=== PATIENT | female | born 1965 | race Two or more races ===

== ENCOUNTER 2016-12-04 21:36 | Emergency (ER) | payer SELFPAY ==
[2016-12-04 21:49] VITALS: BP 172/89
--- NOTE | 2016-12-04 22:22 | EDM.PDOC ---
ED HPI GENERAL MEDICAL PROBLEM - General Chief Complaint: Upper Extremity Injury/Pain Stated Complaint: Left middle finger Time Seen by Provider: 12/04/16 22:00 Source of Information: Reports: Patient, RN Notes Reviewed History Limitations: Reports: No Limitations - History of Present Illness INITIAL COMMENTS - FREE TEXT/NARRATIVE: 51 year old female presents to the ED with 2-3 day history of left middle finger pain and swelling. The finger tip is very tender. She wears acrylic nails and says she bumped the nail a couple times this past week that caused her some discomfort. No fever or chills. Left Hand Pain Score (Numeric/FACES): 10 - Related Data Allergies Allergy/AdvReac Type Severity Reaction Status Date / Time No Known Allergies Allergy Verified 12/04/16 21:48 Home Meds: Home Meds Doxycycline [Vibramycin] 100 mg PO BID #28 tablet 12/04/16 [Rx] Past Medical History - Past Health History Medical/Surgical History: Denies Medical/Surgical History Other Respiratory History: ongoing cough Other Endocrine/Metabolic History: pre-diabetic Social & Family History - Tobacco Use Smoking Status *Q: Never Smoker Second Hand Smoke Exposure: No - Caffeine Use Caffeine Use: Reports: None - Alcohol Use Days Per Week of Alcohol Use: 0 Number of Drinks Per Day: 1 Total Drinks Per Week: 0 - Recreational Drug Use Recreational Drug Use: No Review of Systems - Review of Systems Review Of Systems: See Below Constitutional: Denies: Chills, Fever Musculoskeletal: Reports: Joint Swelling, Other (finger pain) Skin: Reports: Erythema Trauma Exam - Physical Exam Exam: See Below Exam Limited By: No Limitations General Appearance: Reports: Alert, WD/WN, No Apparent Distress Extremities: Other (erythema and tenderness to distal left middle finger. She has acrylic nails on so I am unable to adequately assess the nail bed. CMS is intact. ) Neurologic: Reports: No Motor/Sensory Deficits, Alert Skin: Reports: Other (increased warmth and redness to distall left middle finger ) Course - Vital Signs Last Recorded V/S: Last Vital Signs Temp 97.9 F 12/04/16 21:46 Pulse 94 12/04/16 21:46 Resp 18 12/04/16 21:46 BP 172/89 H 12/04/16 21:46 Pulse Ox 100 12/04/16 21:46 - Orders/Labs/Meds Orders: Active Orders 24 hr Category Date Time Status Fingers Third Digit Lt F2 [CR] Stat Exams 12/04/16 22:09 Ordered Meds: Medications Discontinued Medications Generic Name Dose Route Start Last Admin Trade Name Shashi PRN Reason Stop Dose Admin Bupivacaine HCl 10 ml 12/04/16 22:55 Sensorcaine-Mpf 0.5% INJECT 12/04/16 22:56 ONETIME ONE Doxycycline Hyclate 200 mg 12/04/16 23:04 Vibramycin PO 12/04/16 23:05 ONETIME ONE Ketorolac Tromethamine 60 mg 12/04/16 23:04 Toradol IM 12/04/16 23:05 ONETIME ONE - Re-Assessments/Exams Free Text/Narrative Re-Assessment/Exam: X-rays are negative for bony abnormality. I suspect that the patient has a paronychia. The patient has acrylic nails so I am unable to assess the nail bed adequately. I recommended a digital nerve block and then removing the acrylic nail with possible need for I&D. The patient refused the procedure and removal of her nail. She adamantly refuses that we remove the acrylic nail. She wants to go home and remove the nail herself. I explained that we would numb her finger so that the procedure would not be painful. I explained that she likely has a puss pocket under the nail that needs to be opened up. She stated "I don' t want that." Risks versus benefits were thoroughly discussed. I have agreed to start her on antibiotics. I explained that this will likely not get better with antibiotics alone and that she likely needs the wound drained. Of course, I can not definitively diagnose a paronychia without visualizing the nail bed. She was instructed to remove the nail and follow-up in the clinic tomorrow for a recheck. She is agreeable to this. Will given an injection of Toradol for pain and discharge her home. Departure - Departure Time of Disposition: 23:05 Disposition: Home, Self-Care 01 Condition: good Clinical Impression: Paronychia Qualifiers: Laterality: left Qualified Code(s): L03.012 - Cellulitis of left finger - Discharge Information Prescriptions: Doxycycline [Vibramycin] 100 mg PO BID #28 tablet Referrals: Nayeli Smallwood NP [Primary Care Provider] - Forms: ED Department Discharge Additional Instructions: Antibiotic: Doxycycline 100mg twice a day for two weeks. Take full course of antibiotics I recommend that you remove the acrylic nail and follow-up in the clinic tomorrow to have the infection opened open Call [phone] to schedule a same day appointment tomorrow Ibuprofen 800mg every 8 hours as needed for pain alternating with Tylenol 1000mg every 8 hours - My Orders Last 24 Hours: My Active Orders 12/04/16 22:09 Fingers Third Digit Lt F2 [CR] Stat - Assessment/Plan Last 24 Hours: My Active Orders 12/04/16 22:09 Fingers Third Digit Lt F2 [CR] Stat
[2016-12-04] MEDS ORDERED: Bupivacaine 0.5% 10 ML SDV INJECT ONE (22:55)
[2016-12-04] MEDS ORDERED: Ketorolac 60 MG/2 ML SDV IM ONE (23:04)
[2016-12-04] MEDS ORDERED: Doxycycline 100 MG Cap PO ONE (23:04)
--- NOTE | 2016-12-05 07:09 | CR ---
Left third finger: Three views centered to the left third finger were obtained. Joint space narrowing is noted within the DIP and PIP joints. No fracture, dislocation or other bony abnormality is seen. Impression: 1. Degenerative joint space narrowing. 2. Nothing acute is identified on left third finger study. Diagnostic code #2
== END 2016-12-04 23:20 | disposition home or self-care (01) ==
LOC: JD.ED 21:36
DX: L03.012 Cellulitis of left finger (principal)
CPT/HCPCS: 73140; 96372; 99283; A9270; J1885

== ENCOUNTER 2018-08-04 11:06 | Emergency (ER) | payer SELFPAY ==
[2018-08-04 11:15] VITALS: BP 138/68
--- NOTE | 2018-08-04 11:44 | EDM.PDOC ---
ED HPI GENERAL MEDICAL PROBLEM - General Chief Complaint: Back Pain or Injury Stated Complaint: BACK PAIN Time Seen by Provider: 08/04/18 11:24 Source of Information: Reports: Patient, RN Notes Reviewed History Limitations: Reports: No Limitations - History of Present Illness INITIAL COMMENTS - FREE TEXT/NARRATIVE: The patient states that she developed right flank pain this past Thursday evening , 08/01/2018. The pain is made worse with movement and, she states, it seems to be spreading to the left side now, as well. She denies any injury or strain to her back. She states that she had similar pain in June 2017, was seen here, and prescribed pain medication. I have reviewed all of the patient's prior ED evaluations and found that she was seen in this ED on 08/26/2014, and found to have right ureterolithiasis. The patient also states that she has a history of diabetes, treated with metformin, but that she checks her blood sugar very infrequently, most recently about 3 months ago. She checked it again this morning, finding it to be elevated at 244. She denies urinary symptoms, just dysuria, urinary urgency, or frequency, although does admit to increased thirst. The patient also reports tingling and numbness to her entire left upper extremity, for the past several mornings when she wakes, and although it has improved since this morning when she woke, it is still present. The patient's PCP was Sandie Smallwood. She has not found a new PCP yet. Middle Back Pain Score (Numeric/FACES): 10 - Related Data Allergies Allergy/AdvReac Type Severity Reaction Status Date / Time No Known Allergies Allergy Verified 08/04/18 11:15 Home Meds: Home Meds Orphenadrine [Norflex] 1 tab PO Q12H PRN #20 tab.er 08/04/18 [Rx] metFORMIN [Glucophage XR] 500 mg PO DAILY 08/04/18 [History] Past Medical History Cardiovascular History: Reports: High Cholesterol Genitourinary History: Reports: Renal Calculus (08/26/2014) Endocrine/Metabolic History: Reports: Diabetes, Type II, Obesity/BMI 30+ - Past Surgical History GI Surgical History: Reports: Hernia, Abdominal Female Surgical History: Reports: Tubal Ligation Social & Family History - Tobacco Use Smoking Status *Q: Never Smoker Second Hand Smoke Exposure: No - Caffeine Use Caffeine Use: Reports: Coffee - Alcohol Use Alcohol Use History: Yes Alcohol Use Frequency: Rarely - Recreational Drug Use Recreational Drug Use: No - Living Situation & Occupation Living situation: Reports: , with Spouse Occupation: Employed (Manages an employment company) ED ROS GENERAL - Review of Systems Review Of Systems: ROS reveals no pertinent complaints other than HPI. ED EXAM,LOWER BACK PAIN/INJURY - Physical Exam Exam: See Below Exam Limited By: No Limitations General Appearance: Alert, WD/WN, No Apparent Distress Eye Exam: Bilateral Eye: EOMI, Normal Inspection Ears: Normal External Exam, Hearing Grossly Normal Nose: Normal Inspection Throat/Mouth: Normal Inspection, Normal Lips, Normal Voice, No Airway Compromise Head: Atraumatic, Normocephalic Neck: Normal Inspection, Full Range of Motion Respiratory/Chest: No Respiratory Distress, Lungs Clear, Normal Breath Sounds, No Accessory Muscle Use Cardiovascular: Normal Peripheral Pulses, Regular Rate, Rhythm, No Gallop, No JVD, No Murmur, No Rub GI/Abdominal: Normal Bowel Sounds, Soft, Non-Tender, No Organomegaly, No Distention, No Abnormal Bruit, No Mass, Other (Obese) (Female) Exam: Deferred Rectal (Female) Exam: Deferred Back Exam: Normal Inspection, Full Range of Motion, CVA Tenderness (L) (even to palpation without percussion), CVA Tenderness (R) (even to palpation without percussion), Other (The patient is able to flex her spine to about 70, and extend her spine to about 20. She is able to tilt her spine bilaterally to about 30. She is able to twist her spine bilaterally to about 30. Unilateral knee bend is normal bilaterally. Straight leg raise induces flank pain at about 45, bilaterally.) Extremities: Normal Inspection, Normal Range of Motion, Normal Capillary Refill Neurological: Alert, Oriented x 3, Other (The patient reports a decreased sensation and tingling in her entire left upper extremity. Neurovascular status of the left upper extremity is intact.) Psychiatric: Normal Affect Skin Exam: Warm, Dry, Intact, Normal Color, No Rash Course - Vital Signs Last Recorded V/S: Last Vital Signs Temp 36.6 C 08/04/18 11:13 Pulse 74 08/04/18 11:13 Resp 18 08/04/18 11:13 BP 138/68 08/04/18 11:13 Pulse Ox 97 08/04/18 11:13 - Orders/Labs/Meds Orders: Active Orders 24 hr Category Date Time Status Accu Check [Blood Glucose Check, Bedside] [RC] ONETIME Care 08/04/18 11:28 Active Orphenadrine [Norflex] Med 08/04/18 13:05 Stat 100 mg PO ONETIME STA Labs: Laboratory Tests 08/04/18 Range/Units 11:55 Urine Color Yellow (Yellow) Urine Appearance Clear (Clear) Urine pH 5.5 (5.0-8.0) Ur Specific [place] > or = 1.030 (1.005-1.030) Urine Protein 1+ H (Negative) Urine Glucose (UA) Negative (Negative) Urine Ketones Negative (Negative) Urine Occult Blood Negative (Negative) Urine Nitrite Negative (Negative) Urine Bilirubin Negative (Negative) Urine Urobilinogen 0.2 (0.2-1.0) Ur Leukocyte Esterase Negative (Negative) Urine RBC 0-5 (0-5) /hpf Urine WBC 0-5 (0-5) /hpf Ur Epithelial Cells 0-5 (0-5) /hpf Urine Bacteria Few (FEW) /hpf Urine Mucus Few (FEW) /hpf - Re-Assessments/Exams Free Text/Narrative Re-Assessment/Exam: 08/04/18 11:42 By examination, the patient is suffering from muscle spasm to her right flank, although she has similar symptoms on the left. I want to make sure that she does not have an unusual presentation of a UTI or kidney stone, therefore I have ordered a urinalysis, and because of her report of elevated blood glucose, I have also ordered an Accu-Chek. The patient's left upper extremity tingling and numbness is most likely due to compression neuropraxia, although it is possible that the patient has cervical radiculopathy. She may benefit from a MRI of her neck, but this would need to be done as an outpatient. This was explained to the patient, who seems disappointed. I suspect that she was hoping that all evaluations could be performed here in the ED, today. 08/04/18 13:05 The patient's urinalysis is completely normal, with no suggestion of blood or a UTI. Her Accu-Chek is 209. I suspect that the patient's back pain is musculoskeletal in etiology. I have ordered Norflex, and will prescribe the same. I will refer her to our clinic for follow-up. 08/04/18 13:10 Test results discussed with the patient. I will send a prescription for Norflex to the [facility] in [email or web address], then refer her to Dr. Avila for follow-up. Departure - Departure Time of Disposition: 13:11 Disposition: Home, Self-Care 01 Condition: Good Clinical Impression: Musculoskeletal back pain, Neuropraxia of left upper extremity, Hyperglycemia due to type 2 diabetes mellitus - Discharge Information *PRESCRIPTION DRUG MONITORING PROGRAM REVIEWED*: Not Applicable *COPY OF PRESCRIPTION DRUG MONITORING REPORT IN PATIENT ALPESH: Not Applicable Referrals: Irene Avila MD [Physician] - Forms: ED Department Discharge Additional Instructions: You were seen in the emergency room for right flank pain, high blood sugar, and tingling and numbness of your entire left arm. Workup in the ER included an Accu-Chek and a urinalysis. Your blood sugar is elevated at 209. Your urinalysis was completely normal, with no suggestion of an infection or a kidney stone. Based on your history, physical examination, and ER tests, your back pain is most likely due to muscle strain. You have been started on the muscle relaxant Norflex. A prescription for Norflex has been sent to the [facility], located in the [email or web address] grocery store. Take one tablet of Norflex every 12 hours, starting tomorrow morning, , 08/05/2018. In addition to Norflex, you may also take [id number] ibuprofen, 2-3 tablets (400-600 mg) every 8 hours, with food, as needed for discomfort. The cause of your left arm tingling and numbness is not entirely clear, but may be due to neuropraxia related to cervical disc disease. We recommend that you follow-up with Dr. Irene Avila, for further evaluation. Dr. Avila can also address your diabetes issues. If any other problems, please do not hesitate to return to the ER. - My Orders Last 24 Hours: My Active Orders 08/04/18 11:28 Accu Check [Blood Glucose Check, Bedside] [RC] ONETIME 08/04/18 13:05 Orphenadrine [Norflex] 100 mg PO ONETIME STA - Assessment/Plan Last 24 Hours: My Active Orders 08/04/18 11:28 Accu Check [Blood Glucose Check, Bedside] [] ONETIME 08/04/18 13:05 Orphenadrine [Norflex] 100 mg PO ONETIME STA
[2018-08-04] MEDS ORDERED: Orphenadrine 100 MG Tab.ER PO STA (13:05)
== END 2018-08-04 13:51 | disposition home or self-care (01) ==
LOC: JD.ED 11:06
DX: M54.9 Dorsalgia, unspecified (principal); S44.92XA Injury of unspecified nerve at shoulder and upper arm level, left arm, initial encounter; E11.65 Type 2 diabetes mellitus with hyperglycemia; E78.00 Pure hypercholesterolemia, unspecified; Z87.442 Personal history of urinary calculi; E66.9 Obesity, unspecified; Z79.84 Long term (current) use of oral hypoglycemic drugs
CPT/HCPCS: 81001; 82962; 99283; A9270; 99282

== ENCOUNTER 2019-12-09 21:25 | Emergency (ER) | payer BC ==
--- NOTE | 2019-12-09 21:59 | EDM.PDOC ---
ED HPI GENERAL MEDICAL PROBLEM - General Chief Complaint: Lower Extremity Injury/Pain Stated Complaint: LEFT UPPER THIGH PAIN WOKE HER UP 330 AM Time Seen by Provider: 12/09/19 21:45 Source of Information: Reports: Patient History Limitations: Reports: No Limitations - History of Present Illness INITIAL COMMENTS - FREE TEXT/NARRATIVE: The patient presents with left hip pain. This started a couple days ago and it woke her up at 3:30 am. She has tried advil and tylenol and nothing his helpin. She did not injure her hip in any way. She did not fall and she has not been working to hard. She has never had this happen before. She has no swelling in her leg. She has no back pain. She has no fever, chills, cough, chest pain, shortness of breath, abdominal pain, nausea or vomiting. Onset: Sudden Duration: Day(s): Location: Reports: Lower Extremity, Left (hip) Quality: Reports: Sharp Severity: Severe Improves with: Reports: Immobilization Worsens with: Reports: Movement Context: Denies: Trauma Associated Symptoms: Reports: No Other Symptoms Treatments [employer]: Reports: Acetaminophen, Cold Therapy, Heat Therapy, NSAIDS Left Hip Pain Score (Numeric/FACES): 10 - Related Data Allergies Allergy/AdvReac Type Severity Reaction Status Date / Time No Known Allergies Allergy Verified 12/09/19 21:39 Home Meds: Home Meds metFORMIN [Glucophage XR] 500 mg PO DAILY 08/04/18 [History] Past Medical History - Past Health History Medical/Surgical History: Denies Medical/Surgical History Cardiovascular History: Reports: High Cholesterol Other Respiratory History: ongoing cough Genitourinary History: Reports: Renal Calculus Endocrine/Metabolic History: Reports: Diabetes, Type II, Obesity/BMI 30+ Other Endocrine/Metabolic History: pre-diabetic - Past Surgical History GI Surgical History: Reports: Hernia, Abdominal Female Surgical History: Reports: Tubal Ligation Social & Family History - Tobacco Use Smoking Status *Q: Never Smoker - Caffeine Use Caffeine Use: Reports: Coffee - Recreational Drug Use Recreational Drug Use: No - Living Situation & Occupation Living situation: Reports: , with Spouse Occupation: Employed (Manages an employment company) Review of Systems - Review of Systems Review Of Systems: See Below Constitutional: Reports: No Symptoms Eyes: Reports: No Symptoms Ears: Reports: No Symptoms Nose: Reports: No Symptoms Mouth/Throat: Reports: No Symptoms Respiratory: Reports: No Symptoms Cardiovascular: Reports: No Symptoms GI/Abdominal: Reports: No Symptoms Genitourinary: Reports: No Symptoms Musculoskeletal: Reports: Other (Left hip pain) ED EXAM, GENERAL - Physical Exam Exam: See Below Exam Limited By: No Limitations General Appearance: Alert, No Apparent Distress Ears: Normal External Exam Nose: Normal Inspection Head: Atraumatic, Normocephalic Neck: Normal Inspection Respiratory/Chest: No Respiratory Distress Extremities: Other (Pain upon palpation to the left hip. Good sensation and pulses distally. There is no edema in her leg.) Course - Vital Signs Last Recorded V/S: Last Vital Signs Temp 97.1 F 12/09/19 21:35 Pulse 80 12/09/19 21:35 Resp 18 12/09/19 21:35 BP 160/65 H 12/09/19 21:35 Pulse Ox 97 12/09/19 21:35 - Orders/Labs/Meds Orders: Active Orders 24 hr Category Date Time Status Hip Min 2V or 3V w Pelvis Lt [CR] Stat Exams 12/09/19 21:48 Ordered HYDROmorphone [Dilaudid] Med 12/09/19 22:25 Once 1 mg IM ONETIME ONE Ketorolac [Toradol] Med 12/09/19 22:25 Once 60 mg IM ONETIME ONE - Re-Assessments/Exams Free Text/Narrative Re-Assessment/Exam: 12/09/19 21:59 I ordered an x-ray of her hip. 12/09/19 22:25 Her x-ray looks good. I gave her a shot of toradol and dilaudid. I will give her flexeril and a few hydrocodone. Departure - Departure Time of Disposition: 22:30 Disposition: Home, Self-Care 01 Condition: Good Clinical Impression: Left hip pain - Discharge Information *PRESCRIPTION DRUG MONITORING PROGRAM REVIEWED*: Not Applicable *COPY OF PRESCRIPTION DRUG MONITORING REPORT IN PATIENT ALPESH: Not Applicable Referrals: Digna Razo NP [Primary Care Provider] - Malcolm Edmondson MD [Physician] - 1 Week Forms: ED Department Discharge Additional Instructions: Take motrin or aleve for pain. You may also take the flexeril for pain. If they do not help try the hydrocodone. Ice your hip for 15 minutes 3 times per day for 2 days. Use crutches as needed. Follow up with Dr Edmondson within a week if you are not better. Please return if you are worse. Sepsis Event Note - Evaluation Sepsis Screening Result: No Definite Risk - Focused Exam Vital Signs: Vital Signs Temp Pulse Resp BP Pulse Ox 12/09/19 21:35 97.1 F 80 18 160/65 H 97 Date Exam was Performed: 12/09/19 Time Exam was Performed: 22:25 - My Orders Last 24 Hours: My Active Orders 12/09/19 21:48 Hip Min 2V or 3V w Pelvis Lt [CR] Stat 12/09/19 22:25 HYDROmorphone [Dilaudid] 1 mg IM ONETIME ONE Ketorolac [Toradol] 60 mg IM ONETIME ONE - Assessment/Plan Last 24 Hours: My Active Orders 12/09/19 21:48 Hip Min 2V or 3V w Pelvis Lt [CR] Stat 12/09/19 22:25 HYDROmorphone [Dilaudid] 1 mg IM ONETIME ONE Ketorolac [Toradol] 60 mg IM ONETIME ONE
[2019-12-09] MEDS ORDERED: HYDROmorphone 1 MG/ML Syringe IM ONE (22:25)
[2019-12-09] MEDS ORDERED: Ketorolac 60 MG/2 ML SDV IM ONE (22:25)
[2019-12-10 01:00] VITALS: BP 140/77; PULSE 75
--- NOTE | 2019-12-10 06:19 | CR ---
Pelvis and left hip: AP view of the pelvis was obtained as well as AP and frog-leg lateral views left hip. Slightly prominent acetabulum are seen superiorly on both sides which can be seen normally but puts the patient at risk for premature degeneration. Minimal joint space narrowing is noted superiorly within both hips. No acute fracture or other bony abnormality is seen. Impression: 1. Slight degenerative change and other findings as noted above. Diagnostic code #2 This report was dictated in MDT
== END 2019-12-09 22:40 | disposition home or self-care (01) ==
LOC: JD.ED 21:25
DX: M25.552 Pain in left hip (principal); E11.9 Type 2 diabetes mellitus without complications; E66.9 Obesity, unspecified; Z68.34 Body mass index [BMI] 34.0-34.9, adult; Z79.84 Long term (current) use of oral hypoglycemic drugs
CPT/HCPCS: 73502; 96372; 99283; J1170; J1885

== ENCOUNTER 2020-01-29 02:26 | Emergency (ER) | payer BC ==
[2020-01-29 02:43] VITALS: PULSE 88
[2020-01-29] MEDS ORDERED: HYDROmorphone 0.5 MG/0.5 ML Syringe IVPUSH ONE (03:18)
[2020-01-29] MEDS ORDERED: Ondansetron 4 MG/2 ML SDV IVPUSH ONE (03:18)
--- NOTE | 2020-01-29 03:23 | EDM.PDOC ---
ED HPI GENERAL MEDICAL PROBLEM - General Chief Complaint: Flank Pain Stated Complaint: HEADACHE,LOWER ABDOMINAL PAIN Time Seen by Provider: 01/29/20 03:05 Source of Information: Reports: Patient, Family () History Limitations: Reports: No Limitations - History of Present Illness INITIAL COMMENTS - FREE TEXT/NARRATIVE: Mrs. Baker is a very pleasant 54-year-old woman with a past medical history significant for ureterolithiasis, who now presents to the ED stating that she woke around 02:00 this morning with crampy/sharp left upper quadrant pain (the patient expressly denies having left flank pain, as indicated in the triage note). The pain has been coming and going, lasting a few seconds, then recurring about every 20 seconds. She has had both nausea and vomiting. She has had chills, but no fever. No associated constipation, diarrhea, or urinary symptoms. The patient did not take any [id number] or home remedies prior to coming to the ED. The patient states that she has had similar symptoms on 2 prior occasions, the first about 4 months ago, and again about 3 months ago. She did not seek medical evaluation, stating that in both instances, the symptoms resolved after about 3 days. Here in the ED, the patient's initial BP is found to be elevated at 186/81, otherwise, she is hemodynamically stable, afebrile, saturating 95% on room air. Other than this morning's symptoms, the patient denies recent fever, sore throat, ear pain, nasal or sinus congestion, cough, dyspnea, chest pain, palpitations, constipation, diarrhea, urinary symptoms, recent weight gain or weight loss, recent bloody bowel movements or black bowel movements, recent joint aches, headaches, or rashes. The patient's PCP is Digna Razo NP. Left Flank Pain Score (Numeric/FACES): 10 - Related Data Allergies Allergy/AdvReac Type Severity Reaction Status Date / Time No Known Allergies Allergy Verified 01/29/20 02:52 Home Meds: Home Meds . [No Known Home Meds] 01/29/20 [History] Past Medical History Cardiovascular History: Reports: High Cholesterol (untreated) Genitourinary History: Reports: Renal Calculus Endocrine/Metabolic History: Reports: Diabetes, Type II (untreated), Obesity/BMI 30+ - Past Surgical History GI Surgical History: Reports: Colonoscopy (x 1, May 2019), Hernia, Abdominal Female Surgical History: Reports: Tubal Ligation Social & Family History - Family History Family Medical History: Noncontributory - Tobacco Use Smoking Status *Q: Current Some Day Smoker Years of Tobacco use: 20 Packs/Tins Daily: 0.1 - Caffeine Use Caffeine Use: Reports: None - Alcohol Use Alcohol Use History: Yes Alcohol Use Frequency: Rarely - Recreational Drug Use Recreational Drug Use: No - Living Situation & Occupation Living situation: Reports: , with Spouse Occupation: Employed (Manages an employment company) ED ROS GENERAL - Review of Systems Review Of Systems: Comprehensive ROS is negative, except as noted in HPI. ED EXAM, GI/ABD - Physical Exam Exam: See Below Exam Limited By: No Limitations General Appearance: Alert, WD/WN, Mild Distress (moaning, complaining of pain) Ears: Normal External Exam, Hearing Grossly Normal Nose: Normal Inspection Throat/Mouth: Normal Inspection, Normal Lips, Normal Voice, No Airway Compromise Head: Atraumatic, Normocephalic Neck: Normal Inspection, Full Range of Motion Respiratory/Chest: No Respiratory Distress, Lungs Clear, Normal Breath Sounds, No Accessory Muscle Use Cardiovascular: Normal Peripheral Pulses, Regular Rate, Rhythm, No Edema, No Gallop, No JVD, No Murmur, No Rub GI/Abdominal Exam: Normal Bowel Sounds, Soft, Non-Tender (including the LUQ), No Organomegaly, No Distention, No Abnormal Bruit, No Mass (Female) Exam: Deferred Rectal (Female) Exam: Deferred Back Exam: Normal Inspection, Full Range of Motion. No: CVA Tenderness (L), CVA Tenderness (R) Extremities: Normal Inspection, Normal Range of Motion, No Pedal Edema, Normal Capillary Refill Neurological: Alert, Oriented, Normal Cognition, No Motor/Sensory Deficits Psychiatric: Anxious (kept eyes closed entire time) Skin Exam: Warm, Dry, Intact, Normal Color, No Rash Course - Vital Signs Last Recorded V/S: Last Vital Signs Temp 36.1 C 01/29/20 02:39 Pulse 88 01/29/20 05:10 Resp 16 01/29/20 05:10 BP 140/63 01/29/20 05:10 Pulse Ox 99 01/29/20 05:10 - Orders/Labs/Meds Labs: Laboratory Tests 01/29/20 01/29/20 01/29/20 Range/Units 03:00 03:00 03:55 WBC 11.77 H (3.98-10.04) K/mm3 RBC 4.79 (3.98-5.22) M/mm3 Hgb 13.6 (11.2-15.7) gm/dl Hct 41.5 (34.1-44.9) % MCV 86.6 (79.4-94.8) fl MCH 28.4 (25.6-32.2) pg MCHC 32.8 (32.2-35.5) g/dl RDW Std Deviation 40.6 (36.4-46.3) fL Plt Count 238 (182-369) K/mm3 MPV 12.3 (9.4-12.3) fl Neutrophils % (Manual) 52 (40-60) % Band Neutrophils % 0 (0-10) % Lymphocytes % (Manual) 41 H (20-40) % Atypical Lymphs % 0 % Monocytes % (Manual) 6 (2-10) % Eosinophils % (Manual) 1 (0.7-5.8) % Basophils % (Manual) 0 L (0.1-1.2) Platelet Estimate Adequate Plt Morphology Comment Normal RBC Morph Comment Normal Sodium 140 (136-145) mEq/L Potassium 4.0 (3.5-5.1) mEq/L Chloride 102 (98-107) mEq/L Carbon Dioxide 25 (21-32) mEq/L Anion Gap 17.0 H (5-15) BUN 14 (7-18) mg/dL Creatinine 0.9 (0.55-1.02) mg/dL Est Cr Clr Drug Dosing 60.99 mL/min Estimated GFR (MDRD) > 60 (>60) mL/min BUN/Creatinine Ratio 15.6 (14-18) Glucose 289 H (74-106) mg/dL Calcium 8.6 (8.5-10.1) mg/dL Total Bilirubin 0.2 (0.2-1.0) mg/dL AST 24 (15-37) U/L ALT 38 (14-59) U/L Alkaline Phosphatase 68 (46-116) U/L Total Protein 7.3 (6.4-8.2) g/dl Albumin 3.5 (3.4-5.0) g/dl Globulin 3.8 gm/dL Albumin/Globulin Ratio 0.9 L (1-2) Urine Color Light yellow (Yellow) Urine Appearance Clear (Clear) Urine pH 6.0 (5.0-8.0) Ur Specific [place] 1.025 (1.005-1.030) Urine Protein 1+ H (Negative) Urine Glucose (UA) 2+ H (Negative) Urine Ketones Trace H (Negative) Urine Occult Blood 2+ H (Negative) Urine Nitrite Negative (Negative) Urine Bilirubin Negative (Negative) Urine Urobilinogen 0.2 (0.2-1.0) Ur Leukocyte Esterase Negative (Negative) Urine RBC 5-10 H (0-5) /hpf Urine WBC 0-5 (0-5) /hpf Ur Squamous Epith Cells 5-10 H (0-5) /hpf Urine Bacteria Not seen (FEW) /hpf Urine Mucus Not seen (FEW) /hpf Meds: Medications Discontinued Medications Generic Name Dose Route Start Last Admin Trade Name Freq PRN Reason Stop Dose Admin Hydromorphone HCl 0.5 mg 01/29/20 03:18 01/29/20 03:24 Dilaudid IVPUSH 01/29/20 03:19 0.5 mg ONETIME ONE Administration Sodium Chloride 1,000 mls @ 150 mls/hr 01/29/20 03:30 01/29/20 03:24 Normal Saline IV 150 mls/hr ASDIRECTED GERALD Administration Ondansetron HCl 4 mg 01/29/20 03:18 01/29/20 03:24 Zofran IVPUSH 01/29/20 03:19 4 mg ONETIME ONE Administration - Re-Assessments/Exams Free Text/Narrative Re-Assessment/Exam: 01/29/20 03:19 As above, the patient developed left upper quadrant abdominal pain (not left flank pain, as suggested in the triage note) around 02:00 this morning, along with nausea, vomiting, and chills. She states that she had similar symptoms a few months ago, which resolved after a few days. While the patient is moaning and telling me that she has considerable pain, I was surprised to find that she has absolutely no tenderness to palpation of her abdomen, whatsoever. Similarly, she has no CVA tenderness on either side. Her abdomen is soft with normoactive bowel sounds. For these reasons, I don't believe that an emergency CT scan of her abdomen and pelvis with oral and IV contrast is indicated. For today's purposes, I have ordered a work-up that includes blood work, a urinalysis, and an upright abdominal x-ray. In the meantime, the patient will be given IV Dilaudid, IV Zofran, and IV fluid. 01/29/20 04:34 Upright abdominal x-ray appears to indicate a pocket of gas in the colon at the splenic flexure, with some stool in the descending colon. Otherwise nonspecific bowel gas pattern. Ehsan in the right upper quadrant, consistent with prior cholecystectomy, incidentally noted. Subtle thoracolumbar scoliosis. Formal read per the Radiologist pending. The patient's CBC is remarkable for a WBC count mildly elevated at 11.77, but with 0% bandemia. The remainder of her CBC is unremarkable. Her CMP is remarkable for an anion gap mildly elevated at 17.0, but with a bicarbonate normal at 25. Her blood glucose is elevated at 289, with the remainder of her CMP being unremarkable. Her urinalysis is remarkable for 2+ occult blood with 5-10 RBCs, leukocyte esterase negative with 0-5 WBCs, nitrate negative with no bacteria seen, and 5- 10 squamous epithelial cells. 01/29/20 04:48 Test results discussed with the patient and her . As above, the upright abdominal x-ray shows a gas pocket in the splenic flexure, the site of her pain. I explained that her pain appears to be due to a stool plug causing a backup of some gas in the splenic flexure. I recommended that she increase her ambulation, and also increase the amount of fiber in her diet, with something like Metamucil, along with plenty of fluids. We also discussed the patient's hyperglycemia. I strongly encouraged her to resume treatment for her diabetes. She will follow-up with her PCP in that regard. With respect to the microscopic hematuria, the patient again reiterated that she did not have flank pain, rather, she had left upper quadrant abdominal pain. Since that she does not have any left CVA tenderness, I do not feel that her symptoms are due to a ureterolith, and I am not recommending a CT scan to evaluate for that. I explained that in order to determine why she has microscop ic hematuria, she may need to follow-up with a Urologist, if it persists. Departure - Departure Time of Disposition: 04:50 Disposition: Home, Self-Care 01 Condition: Good Clinical Impression: Gas pain, Hyperglycemia due to type 2 diabetes mellitus - Discharge Information *PRESCRIPTION DRUG MONITORING PROGRAM REVIEWED*: Not Applicable *COPY OF PRESCRIPTION DRUG MONITORING REPORT IN PATIENT ALPESH: Not Applicable Instructions: Hyperglycemia, [id number] Referrals: Digna Razo NP [Primary Care Provider] - Forms: ED Department Discharge Additional Instructions: You were seen in the emergency room after waking up with upper left abdominal pain. Work-up in the ER included blood work, a urinalysis, and x-rays of your upper right abdomen. Your work-up found a pocket of air in your upper left colon, which is likely the cause of your pain. Going forward, we recommend that you increase the amount of fiber in your diet, with something like Metamucil, along with plenty of fluid. We also recommend that you increase the amount that you ambulate (walk). Your blood work was remarkable for a blood sugar elevated at 289. We strongly recommend that you follow-up with your PCP, Digna Razo NP, to get back on treatment for your diabetes. Your urine found a microscopic amount of blood. We recommend that you have your PCP, Digna Razo NP, follow this. If it persists, you may need to be referred to a Urologist. If any other problems, please do not hesitate to return to the ER. Sepsis Event Note (ED) - Evaluation Sepsis Screening Result: No Definite Risk
[2020-01-29] MEDS ORDERED: Sodium Chloride 0.9% 1,000 ML IV SCH (03:30)
[2020-01-29 05:24] VITALS: BP 140/63
--- NOTE | 2020-01-30 05:27 | CR ---
Abdomen: Upright view of the abdomen was obtained. Comparison: Prior abdominal x-ray of 08/25/14. Surgical clips are noted from prior cholecystectomy. Slight scoliosis is noted within the spine. Mild degenerative change is noted within the lower thoracic spine. No soft tissue abnormality is seen. No free air is seen. Bowel gas pattern appears normal. Impression: 1. Prior cholecystectomy. 2. Nothing acute is seen on upright abdominal x-ray. Diagnostic code #2 This report was dictated in MDT
== END 2020-01-29 05:11 | disposition home or self-care (01) ==
LOC: JD.ED 02:26
DX: E11.65 Type 2 diabetes mellitus with hyperglycemia (principal); R14.3 Flatulence; E11.9 Type 2 diabetes mellitus without complications; E66.9 Obesity, unspecified; F17.210 Nicotine dependence, cigarettes, uncomplicated; Z68.37 Body mass index [BMI] 37.0-37.9, adult
CPT/HCPCS: 36415; 74018; 80053; 81001; 85007; 85027; 96361; 96374; 96375; 99284; J1170; J2405; J7030

== ENCOUNTER 2021-03-21 20:15 | Inpatient (IN) | payer SELFPAY ==
[2021-03-21] MEDS ORDERED: Sodium Chloride 0.9% 1,000 ML IV ONE (21:45)
[2021-03-21] MEDS ORDERED: Insulin Regular, Human 100 Units/ML 3 ML Vial IV STA (21:45)
--- NOTE | 2021-03-21 21:45 | EDM.PDOC ---
ED HPI GENERAL MEDICAL PROBLEM - General Chief Complaint: Fever Stated Complaint: LIGHTHEADED/WEAK/VOMITTING Time Seen by Provider: 03/21/21 21:22 Source of Information: Reports: Patient, Family (Son) History Limitations: Reports: No Limitations - History of Present Illness INITIAL COMMENTS - FREE TEXT/NARRATIVE: Mrs. Baker is a very pleasant 55-year-old woman who now presents the ED stating that she has been feeling lightheaded, nauseated, chilled, with body aches, and a headache since 03/19/2021. She has been feeling dyspneic since 03/20/2021. She has had a slight dry cough. No constipation, diarrhea, or urinary symptoms. She has not checked her temperature. The patient states that she has been taking acetaminophen, but is concerned abo ut continuing to take it. The patient states that she had similar symptoms last week, but that they resolved, only to return on Thursday. When she was symptomatic last week, she was seen at the walk-in clinic, where, she states, a swab for the SARS-CoV-2 virus was negative. Here in the ED tonight, the patient's initial BP is found to be mildly elevated at 157/94, with slight tachypnea of 22 rpm. She is afebrile, saturating 93% on room air. She appears to be somewhat depressed, but is in no acute distress. Prior to last week, the patient denies having a recent fever, chills, sore throat, ear pain, nasal or sinus congestion, cough, dyspnea, chest pain, palpitations, nausea, vomiting, constipation, diarrhea, abdominal pain, urinary symptoms, recent weight gain or weight loss, recent bloody bowel movements or black bowel movements, recent joint aches, headaches, or rashes. The patient's PCP is Digna Razo NP. She has not received a COVID vaccination. - Related Data Allergies Allergy/AdvReac Type Severity Reaction Status Date / Time No Known Allergies Allergy Verified 03/21/21 20:37 Home Meds: Home Meds metFORMIN [Glucophage XR] 500 mg PO BIDMEALS 03/21/21 [History] Past Medical History Cardiovascular History: Reports: High Cholesterol (untreated) Genitourinary History: Reports: Renal Calculus Endocrine/Metabolic History: Reports: Diabetes, Type II, Obesity/BMI 30+ - Past Surgical History GI Surgical History: Reports: Colonoscopy (x 1), Hernia, Abdominal (x 1) Female Surgical History: Reports: Tubal Ligation Social & Family History - Tobacco Use Tobacco Use Status *Q: Current Every Day Tobacco User Years of Tobacco use: 21 Packs/Tins Daily: 0.1 - Caffeine Use Caffeine Use: Reports: None - Alcohol Use Alcohol Use History: Yes Alcohol Use Frequency: Rarely - Recreational Drug Use Recreational Drug Use: No - Living Situation & Occupation Living situation: Reports: , with Spouse Occupation: Employed (Manages an employment company) ED ROS GENERAL - Review of Systems Review Of Systems: Comprehensive ROS is negative, except as noted in HPI. ED EXAM, GENERAL - Physical Exam Exam: See Below Exam Limited By: No Limitations General Appearance: Alert, WD/WN, No Apparent Distress Eye Exam: Bilateral Eye: EOMI, Normal Inspection Ears: Normal External Exam, Hearing Grossly Normal Nose: Normal Inspection Throat/Mouth: Normal Inspection, Normal Lips, Normal Voice, No Airway Compromise Head: Atraumatic, Normocephalic Neck: Normal Inspection, Full Range of Motion Respiratory/Chest: No Respiratory Distress, Lungs Clear, Normal Breath Sounds, No Accessory Muscle Use. No: Decreased Breath Sounds, Crackles, Rhonchi, Wheezing, Stridor, Prolonged Expiration Cardiovascular: Normal Peripheral Pulses, Regular Rate, Rhythm, No Edema, No Gallop, No JVD, No Murmur, No Rub Peripheral Pulses: 3+: Radial (L), Radial (R) GI/Abdominal: Normal Bowel Sounds, Soft, Non-Tender, No Organomegaly, No Distention, No Abnormal Bruit, No Mass Back Exam: Normal Inspection, Full Range of Motion, NT Extremities: Normal Inspection, Normal Range of Motion, No Pedal Edema, Normal Capillary Refill Neurological: Alert, Oriented, Normal Cognition, No Motor/Sensory Deficits Psychiatric: Normal Affect Skin Exam: Warm, Dry, Intact, Normal Color, No Rash Course - Vital Signs Last Recorded V/S: Last Vital Signs Temp 37.7 C 03/21/21 20:35 Pulse 99 03/21/21 20:35 Resp 22 H 03/21/21 20:35 BP 157/94 H 03/21/21 20:35 Pulse Ox 93 L 03/21/21 20:35 - Orders/Labs/Meds Orders: Active Orders 24 hr Category Date Time Status Accu Check [Blood Glucose Check, Bedside] [RC] ONETIME Care 03/22/21 00:13 Active BLOOD CULTURE [MREF] Stat Lab 03/21/21 22:00 Received BLOOD CULTURE [MREF] Stat Lab 03/21/21 22:10 Received CULTURE URINE [MREF] Stat Lab 03/22/21 00:33 Ordered Blood Culture x2 Reflex Set [OM.PC] Stat Oth 03/21/21 21:37 Ordered Labs: Laboratory Tests 03/21/21 03/21/21 03/21/21 Range/Units 20:40 20:45 20:50 WBC 16.77 H (3.98-10.04) K/mm3 RBC 4.73 (3.98-5.22) M/mm3 Hgb 13.4 (11.2-15.7) gm/dl Hct 40.5 (34.1-44.9) % MCV 85.6 (79.4-94.8) fl MCH 28.3 (25.6-32.2) pg MCHC 33.1 (32.2-35.5) g/dl RDW Std Deviation 39.2 (36.4-46.3) fL Plt Count 211 (182-369) K/mm3 MPV 12.6 H (9.4-12.3) fl Neut % (Auto) 82.4 H (34.0-71.1) % Lymph % (Auto) 9.4 L (19.3-51.7) % [place] % (Auto) 7.6 (4.7-12.5) % Eos % (Auto) 0.1 L (0.7-5.8) Baso % (Auto) 0.1 (0.1-1.2) % Neut # (Auto) 13.82 H (1.56-6.13) K/mm3 Lymph # (Auto) 1.57 (1.18-3.74) K/mm3 [place] # (Auto) 1.28 H (0.24-0.36) K/mm3 Eos # (Auto) 0.01 L (0.04-0.36) K/mm3 Baso # (Auto) 0.02 (0.01-0.08) K/mm3 Sodium (136-145) mEq/L Potassium (3.5-5.1) mEq/L Chloride (98-107) mEq/L Carbon Dioxide (21-32) mEq/L Anion Gap (5-15) BUN (7-18) mg/dL Creatinine (0.55-1.02) mg/dL Est Cr Clr Drug Dosing mL/min Estimated GFR (MDRD) (>60) mL/min BUN/Creatinine Ratio (14-18) Glucose (70-99) mg/dL POC Glucose (70-99) mg/dL Calcium (8.5-10.1) mg/dL Total Bilirubin (0.2-1.0) mg/dL AST (15-37) U/L ALT (14-59) U/L Alkaline Phosphatase (46-116) U/L C-Reactive Protein (<1.0) mg/dL Total Protein (6.4-8.2) g/dl Albumin (3.4-5.0) g/dl Globulin gm/dL Albumin/Globulin Ratio (1-2) Urine Color Yellow (Yellow) Urine Appearance Slt cloudy H (Clear) Urine pH 6.0 (5.0-8.0) Ur Specific [place] 1.015 (1.005-1.030) Urine Protein 2+ H (Negative) Urine Glucose (UA) 2+ H (Negative) Urine Ketones 3+ H (Negative) Urine Occult Blood 3+ H (Negative) Urine Nitrite Negative (Negative) Urine Bilirubin Negative (Negative) Urine Urobilinogen 0.2 (0.2-1.0) Ur Leukocyte Esterase Negative (Negative) Urine RBC 10-20 H (0-5) /hpf Urine WBC 10-20 H (0-5) /hpf Ur Squamous Epith Cells 0-5 (0-5) /hpf Urine Bacteria Few (FEW) /hpf Urine Mucus Not seen (FEW) /hpf Ketones (0.0-0.3) mM Influenza Type A RNA Cancelled Influenza Type B RNA Cancelled SARS-CoV-2 RNA (DALE) Negative (NEGATIVE) 03/21/21 03/21/21 03/22/21 Range/Units 20:50 20:50 00:16 WBC (3.98-10.04) K/mm3 RBC (3.98-5.22) M/mm3 Hgb (11.2-15.7) gm/dl Hct (34.1-44.9) % MCV (79.4-94.8) fl MCH (25.6-32.2) pg MCHC (32.2-35.5) g/dl RDW Std Deviation (36.4-46.3) fL Plt Count (182-369) K/mm3 MPV (9.4-12.3) fl Neut % (Auto) (34.0-71.1) % Lymph % (Auto) (19.3-51.7) % [place] % (Auto) (4.7-12.5) % Eos % (Auto) (0.7-5.8) Baso % (Auto) (0.1-1.2) % Neut # (Auto) (1.56-6.13) K/mm3 Lymph # (Auto) (1.18-3.74) K/mm3 [place] # (Auto) (0.24-0.36) K/mm3 Eos # (Auto) (0.04-0.36) K/mm3 Baso # (Auto) (0.01-0.08) K/mm3 Sodium 129 L D (136-145) mEq/L Potassium 4.5 (3.5-5.1) mEq/L Chloride 94 L (98-107) mEq/L Carbon Dioxide 24 (21-32) mEq/L Anion Gap 15.5 H (5-15) BUN 13 (7-18) mg/dL Creatinine 0.9 (0.55-1.02) mg/dL Est Cr Clr Drug Dosing 57.74 mL/min Estimated GFR (MDRD) > 60 (>60) mL/min BUN/Creatinine Ratio 14.4 (14-18) Glucose 398 H (70-99) mg/dL POC Glucose 269 H (70-99) mg/dL Calcium 9.2 (8.5-10.1) mg/dL Total Bilirubin 0.4 (0.2-1.0) mg/dL AST 13 L (15-37) U/L ALT 30 (14-59) U/L Alkaline Phosphatase 92 (46-116) U/L C-Reactive Protein 49.6 H* (<1.0) mg/dL Total Protein 8.1 (6.4-8.2) g/dl Albumin 2.9 L (3.4-5.0) g/dl Globulin 5.2 gm/dL Albumin/Globulin Ratio 0.6 L (1-2) Urine Color (Yellow) Urine Appearance (Clear) Urine pH (5.0-8.0) Ur Specific [place] (1.005-1.030) Urine Protein (Negative) Urine Glucose (UA) (Negative) Urine Ketones (Negative) Urine Occult Blood (Negative) Urine Nitrite (Negative) Urine Bilirubin (Negative) Urine Urobilinogen (0.2-1.0) Ur Leukocyte Esterase (Negative) Urine RBC (0-5) /hpf Urine WBC (0-5) /hpf Ur Squamous Epith Cells (0-5) /hpf Urine Bacteria (FEW) /hpf Urine Mucus (FEW) /hpf Ketones 1.11 (0.0-0.3) mM Influenza Type A RNA Influenza Type B RNA SARS-CoV-2 RNA (DALE) (NEGATIVE) Meds: Medications Discontinued Medications Generic Name Dose Route Start Last Admin Trade Name Freq PRN Reason Stop Dose Admin Sodium Chloride 1,000 mls @ 999 mls/hr 03/21/21 21:45 03/21/21 22:01 Normal Saline IV 03/21/21 22:45 999 mls/hr ONETIME ONE Administration Insulin Human Regular 4 unit 03/21/21 21:45 03/21/21 22:01 Insulin Regular, Human 100 Units/Ml 3 Ml Vial IV 03/21/21 21:46 4 unit ONETIME STA Administration - Re-Assessments/Exams Free Text/Narrative Re-Assessment/Exam: 03/21/21 21:40 The patient's story is concerning for coronavirus, particularly with an oxygen saturation of 93% on room air. Her physical exam is completely unremarkable, including lungs clear to auscultation bilaterally. A CBC, CMP, CRP, swab for the SARS-CoV-2 virus, and urinalysis were ordered at triage. I have added 2 sets of blood cultures and a portable chest x-ray. The patient's CBC is remarkable for leukocytosis of 16.77, with 82.4% neutrophils and 9.4% lymphocytes, with the remainder of her CBC being unremarkable. Her CMP is remarkable for hyponatremia of 129, and anion gap slightly elevated at 15.5 but with a bicarbonate normal at 24, hyperglycemia of 398, and the remainder of her CMP being unremarkable. Her urinalysis is remarkable for slightly cloudy appearance, 3+ occult blood with 10-20 RBCs, leukocyte esterase negative with 10-20 WBCs, nitrate negative with few bacteria, and 0-5 squamous epithelial cells. Based on the above, I will order 1 L of NS and 4 units of regular insulin IVP. 03/21/21 22:31 Portable chest x-ray is read by Dr. Chery as: 1. Slight calcific tendinitis within the left shoulder. 2. Nothing acute is appreciated on frontal chest x-ray. 03/21/21 22:43 The patient's CRP is substantially elevated at 49.6. Her swab for the SARS-CoV-2 virus is negative. 03/21/21 22:45 I have added a serum ketones. 03/21/21 23:54 The patient's serum ketones are mildly elevated at 1.11. 03/22/21 00:21 The patient's Accu-Chek is 269. 03/22/21 00:28 Test results discussed with the patient and her son. The patient's leukocytosis and very high CRP are concerning for an infection, although no infection has been found. She does not have pneumonia, and does not appear to have a UTI. I suspect that her hyperglycemia is a response an infectious cause, not the cause of her leukocytosis and elevated CRP. I recommended placement into observation, and the patient agreed. 03/22/21 02:19 A bed is available on the medical floor. I will write bridge orders, then notify Dr. Neal of the patient's admission in the morning. Departure - Departure Time of Disposition: 02:20 Disposition: Refer to Observation Condition: Good Clinical Impression: Hyperglycemia due to type 2 diabetes mellitus, Leukocytosis, CRP elevated - Discharge Information *PRESCRIPTION DRUG MONITORING PROGRAM REVIEWED*: Not Applicable *COPY OF PRESCRIPTION DRUG MONITORING REPORT IN PATIENT ALPESH: Not Applicable Sepsis Event Note (ED) - Evaluation Sepsis Screening Result: Possible Sepsis Risk - Focused Exam Vital Signs: Vital Signs Temp Pulse Resp BP Pulse Ox 03/21/21 20:35 37.7 C 99 22 H 157/94 H 93 L - My Orders Last 24 Hours: My Active Orders 03/21/21 21:37 Blood Culture x2 Reflex Set [OM.PC] Stat 03/21/21 22:00 BLOOD CULTURE [MREF] Stat 03/21/21 22:10 BLOOD CULTURE [MREF] Stat 03/22/21 00:13 Accu Check [Blood Glucose Check, Bedside] [RC] ONETIME 03/22/21 00:33 CULTURE URINE [MREF] Stat - Assessment/Plan Last 24 Hours: My Active Orders 03/21/21 21:37 Blood Culture x2 Reflex Set [OM.PC] Stat 03/21/21 22:00 BLOOD CULTURE [MREF] Stat 03/21/21 22:10 BLOOD CULTURE [MREF] Stat 03/22/21 00:13 Accu Check [Blood Glucose Check, Bedside] [RC] ONETIME 03/22/21 00:33 CULTURE URINE [MREF] Stat
--- NOTE | 2021-03-21 22:18 | CR ---
Chest: Frontal view of the chest was obtained. Comparison: Prior chest x-ray of 03/19/15. Heart size and mediastinum are within normal limits. Lungs are clear with no acute parenchymal change. Bony structures show nothing acute. Small calcification is noted off the proximal left humerus compatible with calcific tendinitis. Impression: 1. Slight calcific tendinitis within the left shoulder. 2. Nothing acute is appreciated on frontal chest x-ray. Diagnostic code #2
[2021-03-22] MEDS ORDERED: Ondansetron 4 MG/2 ML SDV IVPUSH ONE (02:29)
[2021-03-22] MEDS ORDERED: Sodium Chloride 0.9% 1,000 ML IV SCH (02:30)
[2021-03-22] MEDS ORDERED: Ondansetron 4 MG/2 ML SDV IVPUSH PRN (02:38)
[2021-03-22] MEDS: Sodium Chloride 0.9% 1,000 ML IV SCH ×3 (03:34→09:54)
--- NOTE | 2021-03-22 08:32 | PCM.HP.2 ---
H&P History of Present Illness - General Date of Service: 03/22/21 Admit Problem/Dx: Admission Diagnosis/Problem Admission Diagnosis/Problem Hyperglycemia - History of Present Illness Initial Comments - Free Text/Narative: 55-year-old female presents to the emergency department feeling ill for the last several days. She states she is been chilled, fever, body aches especially back pain, lightheaded, and generalized malaise and fatigue. She denies shortness of breath or cough. She denies any dysuria, abdominal pain, diarrhea, nausea, or vomiting. states that she is very active and works hard getting only 5 to 6 hours of sleep per night. Now she states she feels fatigued and unable to do so. She was seen last week at the walk-in clinic and tested for COVID-19. It was negative. In the emergency department here she was again tested for COVID-19 and was negative. In the emergency department she was initially mildly tachypneic at respiratory rate of 22 and sats are 93% on room air. Blood pressure is 157/94 with a heart rate of 99. Patient fulfills SIRS criteria. White count was 16.8, C-reactive protein was very high at 49.6. She is diabetic, not taking her Glucophage for several months, and initial blood sugars were 398. Ketones were 1.11. Corrected sodium was 136. Patient was given 1 L of normal saline, 4 units of regular insulin, and transferred to the floor. Chest x-ray was completed and showed nothing acute of the chest. UA was negative for leukocyte Estrace but did show 10-20 WBCs and RBCs. - Related Data Allergies/Adverse Reactions: Allergies Allergy/AdvReac Type Severity Reaction Status Date / Time No Known Allergies Allergy Verified 03/21/21 20:37 Home Medications: Home Meds metFORMIN [Glucophage XR] 500 mg PO BIDMEALS 03/21/21 [History] Past Medical History - Past Health History Medical/Surgical History: Denies Medical/Surgical History Cardiovascular History: Reports: High Cholesterol, Other (See Below) Other Cardiovascular History: Patient stated she had high cholesterol in the past but her provider took her off the medicine Other Respiratory History: ongoing cough Genitourinary History: Reports: Renal Calculus [employer]ACH[employer]IDE CLERICAL History: Reports: Endocrine/Metabolic History: Reports: Diabetes, Type II, Obesity/BMI 30+ Other Endocrine/Metabolic History: pre-diabetic - Past Surgical History GI Surgical History: Reports: Colonoscopy, Hernia, Abdominal Female Surgical History: Reports: Tubal Ligation Social & Family History - Family History Family Medical History: No Pertinent Family History - Tobacco Use Tobacco Use Status *Q: Former Tobacco User Years of Tobacco use: 21 Packs/Tins Daily: 0.1 Used Tobacco, but Quit: Yes Month/Year Tobacco Last Used: unknown Tobacco Use Comment: Patient did not give much detail but stated she used to smoke for not very long and a pack would last her about two months - Caffeine Use Caffeine Use: Reports: None - Recreational Drug Use Recreational Drug Use: No - Living Situation & Occupation Living situation: Reports: , with Spouse Occupation: Employed (Manages an employment company) H&P Review of Systems - Review of Systems: Review Of Systems: Comprehensive ROS is negative, except as noted in HPI. Exam - Exam Exam: See Below - Vital Signs Vital Signs: Last Vital Signs Temp 98.2 F 03/22/21 07:53 Pulse 85 03/22/21 07:53 Resp 16 03/22/21 07:53 BP 149/61 H 03/22/21 07:53 Pulse Ox 96 03/22/21 07:53 Weight: 199 lb - Exam Quality Assessment: No: Supplemental Oxygen General: Alert, Oriented, Other (No distress) HEENT: Conjunctiva Clear, Hearing Intact, Mucosa Moist & [place] Neck: Supple, Trachea Midline, 2 Lungs: Clear to Auscultation, Normal Respiratory Effort Cardiovascular: Regular Rate, Regular Rhythm, Normal S1, Normal S2. No: Systolic Murmur GI/Abdominal Exam: Normal Bowel Sounds, Soft, Non-Tender, No Organomegaly, No Distention, No Abnormal Bruit, No Mass Extremities: Normal Inspection, Normal Range of Motion, Non-Tender, No Pedal Edema, Normal Capillary Refill Skin: Warm, Dry, Intact Neuro Extensive - Mental Status: Alert, Oriented x3, Normal Mood/Affect, Normal Cognition, Memory Intact Psychiatric: Alert, Normal Affect, Normal Mood - Patient Data Lab Results Last 24 hrs: Laboratory Results - last 24 hr 03/21/21 03/21/21 03/21/21 Range/Units 20:40 20:45 20:50 WBC 16.77 H (3.98-10.04) K/mm3 RBC 4.73 (3.98-5.22) M/mm3 Hgb 13.4 (11.2-15.7) gm/dl Hct 40.5 (34.1-44.9) % MCV 85.6 (79.4-94.8) fl MCH 28.3 (25.6-32.2) pg MCHC 33.1 (32.2-35.5) g/dl RDW Std Deviation 39.2 (36.4-46.3) fL Plt Count 211 (182-369) K/mm3 MPV 12.6 H (9.4-12.3) fl Neut % (Auto) 82.4 H (34.0-71.1) % Lymph % (Auto) 9.4 L (19.3-51.7) % Edwards % (Auto) 7.6 (4.7-12.5) % Eos % (Auto) 0.1 L (0.7-5.8) Baso % (Auto) 0.1 (0.1-1.2) % Neut # (Auto) 13.82 H (1.56-6.13) K/mm3 Lymph # (Auto) 1.57 (1.18-3.74) K/mm3 Edwards # (Auto) 1.28 H (0.24-0.36) K/mm3 Eos # (Auto) 0.01 L (0.04-0.36) K/mm3 Baso # (Auto) 0.02 (0.01-0.08) K/mm3 Sodium (136-145) mEq/L Potassium (3.5-5.1) mEq/L Chloride (98-107) mEq/L Carbon Dioxide (21-32) mEq/L Anion Gap (5-15) BUN (7-18) mg/dL Creatinine (0.55-1.02) mg/dL Est Cr Clr Drug Dosing mL/min Estimated GFR (MDRD) (>60) mL/min BUN/Creatinine Ratio (14-18) Glucose (70-99) mg/dL POC Glucose (70-99) mg/dL Calcium (8.5-10.1) mg/dL Total Bilirubin (0.2-1.0) mg/dL AST (15-37) U/L ALT (14-59) U/L Alkaline Phosphatase (46-116) U/L C-Reactive Protein (<1.0) mg/dL Total Protein (6.4-8.2) g/dl Albumin (3.4-5.0) g/dl Globulin gm/dL Albumin/Globulin Ratio (1-2) Urine Color Yellow (Yellow) Urine Appearance Slt cloudy H (Clear) Urine pH 6.0 (5.0-8.0) Ur Specific [place] 1.015 (1.005-1.030) Urine Protein 2+ H (Negative) Urine Glucose (UA) 2+ H (Negative) Urine Ketones 3+ H (Negative) Urine Occult Blood 3+ H (Negative) Urine Nitrite Negative (Negative) Urine Bilirubin Negative (Negative) Urine Urobilinogen 0.2 (0.2-1.0) Ur Leukocyte Esterase Negative (Negative) Urine RBC 10-20 H (0-5) /hpf Urine WBC 10-20 H (0-5) /hpf Ur Squamous Epith Cells 0-5 (0-5) /hpf Urine Bacteria Few (FEW) /hpf Urine Mucus Not seen (FEW) /hpf Ketones (0.0-0.3) mM Influenza Type A RNA Cancelled Influenza Type B RNA Cancelled SARS-CoV-2 RNA (DALE) Negative (NEGATIVE) 03/21/21 03/21/21 03/22/21 Range/Units 20:50 20:50 00:16 WBC (3.98-10.04) K/mm3 RBC (3.98-5.22) M/mm3 Hgb (11.2-15.7) gm/dl Hct (34.1-44.9) % MCV (79.4-94.8) fl MCH (25.6-32.2) pg MCHC (32.2-35.5) g/dl RDW Std Deviation (36.4-46.3) fL Plt Count (182-369) K/mm3 MPV (9.4-12.3) fl Neut % (Auto) (34.0-71.1) % Lymph % (Auto) (19.3-51.7) % Edwards % (Auto) (4.7-12.5) % Eos % (Auto) (0.7-5.8) Baso % (Auto) (0.1-1.2) % Neut # (Auto) (1.56-6.13) K/mm3 Lymph # (Auto) (1.18-3.74) K/mm3 Edwards # (Auto) (0.24-0.36) K/mm3 Eos # (Auto) (0.04-0.36) K/mm3 Baso # (Auto) (0.01-0.08) K/mm3 Sodium 129 L D (136-145) mEq/L Potassium 4.5 (3.5-5.1) mEq/L Chloride 94 L (98-107) mEq/L Carbon Dioxide 24 (21-32) mEq/L Anion Gap 15.5 H (5-15) BUN 13 (7-18) mg/dL Creatinine 0.9 (0.55-1.02) mg/dL Est Cr Clr Drug Dosing 57.74 mL/min Estimated GFR (MDRD) > 60 (>60) mL/min BUN/Creatinine Ratio 14.4 (14-18) Glucose 398 H (70-99) mg/dL POC Glucose 269 H (70-99) mg/dL Calcium 9.2 (8.5-10.1) mg/dL Total Bilirubin 0.4 (0.2-1.0) mg/dL AST 13 L (15-37) U/L ALT 30 (14-59) U/L Alkaline Phosphatase 92 (46-116) U/L C-Reactive Protein 49.6 H* (<1.0) mg/dL Total Protein 8.1 (6.4-8.2) g/dl Albumin 2.9 L (3.4-5.0) g/dl Globulin 5.2 gm/dL Albumin/Globulin Ratio 0.6 L (1-2) Urine Color (Yellow) Urine Appearance (Clear) Urine pH (5.0-8.0) Ur Specific [place] (1.005-1.030) Urine Protein (Negative) Urine Glucose (UA) (Negative) Urine Ketones (Negative) Urine Occult Blood (Negative) Urine Nitrite (Negative) Urine Bilirubin (Negative) Urine Urobilinogen (0.2-1.0) Ur Leukocyte Esterase (Negative) Urine RBC (0-5) /hpf Urine WBC (0-5) /hpf Ur Squamous Epith Cells (0-5) /hpf Urine Bacteria (FEW) /hpf Urine Mucus (FEW) /hpf Ketones 1.11 (0.0-0.3) mM Influenza Type A RNA Influenza Type B RNA SARS-CoV-2 RNA (DALE) (NEGATIVE) 03/22/21 Range/Units 04:50 WBC (3.98-10.04) K/mm3 RBC (3.98-5.22) M/mm3 Hgb (11.2-15.7) gm/dl Hct (34.1-44.9) % MCV (79.4-94.8) fl MCH (25.6-32.2) pg MCHC (32.2-35.5) g/dl RDW Std Deviation (36.4-46.3) fL Plt Count (182-369) K/mm3 MPV (9.4-12.3) fl Neut % (Auto) (34.0-71.1) % Lymph % (Auto) (19.3-51.7) % Edwards % (Auto) (4.7-12.5) % Eos % (Auto) (0.7-5.8) Baso % (Auto) (0.1-1.2) % Neut # (Auto) (1.56-6.13) K/mm3 Lymph # (Auto) (1.18-3.74) K/mm3 Edwards # (Auto) (0.24-0.36) K/mm3 Eos # (Auto) (0.04-0.36) K/mm3 Baso # (Auto) (0.01-0.08) K/mm3 Sodium 133 L (136-145) mEq/L Potassium 3.8 (3.5-5.1) mEq/L Chloride 99 (98-107) mEq/L Carbon Dioxide 21 (21-32) mEq/L Anion Gap 16.8 H (5-15) BUN 11 (7-18) mg/dL Creatinine 0.6 (0.55-1.02) mg/dL Est Cr Clr Drug Dosing 90.41 mL/min Estimated GFR (MDRD) > 60 (>60) mL/min BUN/Creatinine Ratio 18.3 H (14-18) Glucose 291 H (70-99) mg/dL POC Glucose (70-99) mg/dL Calcium 8.6 (8.5-10.1) mg/dL Total Bilirubin (0.2-1.0) mg/dL AST (15-37) U/L ALT (14-59) U/L Alkaline Phosphatase (46-116) U/L C-Reactive Protein (<1.0) mg/dL Total Protein (6.4-8.2) g/dl Albumin (3.4-5.0) g/dl Globulin gm/dL Albumin/Globulin Ratio (1-2) Urine Color (Yellow) Urine Appearance (Clear) Urine pH (5.0-8.0) Ur Specific [place] (1.005-1.030) Urine Protein (Negative) Urine Glucose (UA) (Negative) Urine Ketones (Negative) Urine Occult Blood (Negative) Urine Nitrite (Negative) Urine Bilirubin (Negative) Urine Urobilinogen (0.2-1.0) Ur Leukocyte Esterase (Negative) Urine RBC (0-5) /hpf Urine WBC (0-5) /hpf Ur Squamous Epith Cells (0-5) /hpf Urine Bacteria (FEW) /hpf Urine Mucus (FEW) /hpf Ketones (0.0-0.3) mM Influenza Type A RNA Influenza Type B RNA SARS-CoV-2 RNA (DALE) (NEGATIVE) Result Diagrams: 03/21/21 20:50 03/22/21 04:50 Bimal Results Last 24 hrs: Microbiology 03/21/21 20:45 Influenza Type A Antigen Screen - Final Nasopharyngeal Swab NEGATIVE INFLUENZA A VIRUS AG REFERENCE RANGE: NEGATIVE Influenza Type B Antigen Screen - Final NEGATIVE INFLUENZA B VIRUS AG REFERENCE RANGE: NEGATIVE Sepsis Event Note - Evaluation Sepsis Screening Result: Possible Sepsis Risk - Focused Exam Vital Signs: Vital Signs Temp Temp Pulse Pulse Resp BP BP 03/22/21 07:53 98.2 F 85 16 149/61 H 03/22/21 02:46 92 03/22/21 02:36 99.7 F 24 H 150/55 H 03/22/21 02:30 94 16 141/69 H 03/22/21 02:00 87 18 146/73 H 03/22/21 01:30 88 139/75 03/22/21 01:00 92 150/73 H 03/22/21 00:00 84 139/71 03/21/21 23:00 92 151/74 H 03/21/21 22:00 94 157/73 H 03/21/21 20:35 99.9 F 99 22 H 157/94 H Pulse Ox 03/22/21 07:53 96 03/22/21 02:46 93 L 03/22/21 02:36 03/22/21 02:30 96 03/22/21 02:00 94 L 03/22/21 01:30 97 03/22/21 01:00 95 03/22/21 00:00 96 03/21/21 23:00 96 03/21/21 22:00 94 L 03/21/21 20:35 93 L - Problem List (1) Complicated UTI (urinary tract infection) SNOMED Code(s): 92755962 ICD Code: N39.0 - URINARY TRACT INFECTION, SITE NOT SPECIFIED Status: Acute Current Visit: Yes (2) SIRS (systemic inflammatory response syndrome) SNOMED Code(s): 267276982 ICD Code: R65.10 - SIRS OF NON-INFECTIOUS ORIGIN W/O ACUTE ORGAN DYSFUNCTION Status: Acute Current Visit: Yes (3) Hyperglycemia due to type 2 diabetes mellitus SNOMED Code(s): 262991129044569, 218261531890502 ICD Code: E11.65 - TYPE 2 DIABETES MELLITUS WITH HYPERGLYCEMIA Status: Acu te Current Visit: Yes Problem List Initiated/Reviewed/Updated: Yes Orders Last 24hrs: Active Orders 24 hr Category Date Time Status Patient Status [ADT] Routine ADT 03/22/21 02:04 Active Up With Assistance [RC] BID Care 03/22/21 02:34 Active Regular Diet [DIET] Diet 03/22/21 Breakfast Active BLOOD CULTURE [MREF] Stat Lab 03/21/21 22:00 Received BLOOD CULTURE [MREF] Stat Lab 03/21/21 22:10 Received CULTURE URINE [MREF] Stat Lab 03/22/21 00:33 Ordered GLYCOSYLATED HEMOGLOBIN,HGBA1C [CHEM] Routine Lab 03/22/21 08:13 Ordered LACTIC ACID [CHEM] Stat Lab 03/22/21 08:12 Ordered MAGNESIUM [CHEM] Routine Lab 03/22/21 08:14 Ordered Ondansetron [Zofran] Med 03/22/21 02:38 Active 4 mg IVPUSH Q6HR PRN Sodium Chloride 0.9% [Normal Saline] 1,000 ml Med 03/22/21 02:45 Active IV ASDIRECTED cefTRIAXone [Rocephin] 1 gm Med 03/22/21 08:15 Ordered Sodium Chloride 0.9% [Normal Saline] 100 ml IV Q24H Blood Culture x2 Reflex Set [OM.PC] Stat Oth 03/21/21 21:37 Ordered Code Status [Resuscitation Status] Routine Resus Stat 03/22/21 02:33 Ordered Medication Orders Sodium Chloride (Normal Saline) 1,000 mls @ 333 mls/hr IV ASDIRECTED [facility] Last Admin: 03/22/21 06:41 Dose: 333 mls/hr Documented by: Infusion: 03/22/21 06:35 Dose: 333 mls/hr Documented by: Admin: 03/22/21 03:34 Dose: 333 mls/hr Documented by: KAREN Ceftriaxone Sodium 1 gm/ (Sodium Chloride) 100 mls @ 200 mls/hr IV Q24H GERALD Ondansetron HCl (Ondansetron 4 Mg/2 Ml Sdv) 4 mg IVPUSH Q6HR PRN PRN Reason: Nausea/Vomiting Assessment/Plan Comment:: 55-year-old female with uncontrolled diabetes presents with flulike illness -Covid negative UTI, complicated Fulfills 3 of 4 SIRS criteria -Tachypneic, respiratory rate of 22, tachycardic, heart rate of 99, -WBC 16.77 with 82% neutrophils and 9.4% lymphocytes. Smear otherwise normal. -CRP 50 -Lactic acid negative -Blood and urine cultures obtained -Rocephin 1 g every 24 hours Uncontrolled type 2 diabetes -Hemoglobin A1c greater than 12 -Initial blood sugar 398 -Noncompliant with Metformin. -We will get microalbumin to creatinine ratio when UTI is treated -Fingerstick blood sugars before every meal and at bedtime -Start Lantus 20 units daily -NovoLog 5 units before each meal -Medium dose sliding scale insulin Elevated blood pressure without diagnosis of hypertension -Initial blood pressure 154/94 -We will monitor and if elevated microalbumin to creatinine ratio will start SUE/ARB Hypomagnesemia -Magnesium 1.7 -Give 2 g IV -Recheck in the morning Obesity -BMI 34 Follow CBC, CMP, CRP, mag Check procalcitonin VTE prophylaxis with Lovenox CODE STATUS: Full code - Mortality Measure Prognosis:: Good
[2021-03-22] MEDS: cefTRIAXone 1 GM in Sodium Chloride 0.9% 100 ML IV SCH (08:43)
[2021-03-22 09:34] LABS: HEMOGLOBIN A1C 12.5 %
[2021-03-22] MEDS ORDERED: Magnesium Sulfate/Water 2 GM in Premix Bag 1 BAG IV ONE (11:00)
[2021-03-22] MEDS: Enoxaparin 40 MG/0.4 ML Syringe SUBCUT SCH (11:28)
[2021-03-22] MEDS: Insulin Lispro 100 UNIT/ML 10 ML Vial SUBCUT SCH ×3 (11:28→22:05)
[2021-03-22] MEDS: Insulin Glarg,Human.Rec.Analog 100 Unit/ML SUBCUT SCH (11:29)
[2021-03-23] MEDS: Insulin Lispro 100 UNIT/ML 10 ML Vial SUBCUT SCH ×7 (08:11→21:16)
[2021-03-23] MEDS: Enoxaparin 40 MG/0.4 ML Syringe SUBCUT SCH (08:12)
[2021-03-23] MEDS: Insulin Glarg,Human.Rec.Analog 100 Unit/ML SUBCUT SCH (08:12)
[2021-03-23] MEDS: cefTRIAXone 1 GM in Sodium Chloride 0.9% 100 ML IV SCH (08:13)
--- NOTE | 2021-03-23 08:50 | PCM.PN ---
- General Info Date of Service: 03/23/21 Admission Dx/Problem (Free Text): Admission Diagnosis/Problem Admission Diagnosis/Problem Hyperglycemia Subjective Update: Julia states that she is feeling much better. She still is fatigued, but generally improved. Functional Status: Reports: Pain Controlled - Review of Systems General: Reports: Fatigue HEENT: Reports: No Symptoms Pulmonary: Reports: No Symptoms Cardiovascular: Reports: No Symptoms Gastrointestinal: Reports: No Symptoms - Patient Data Vitals - Most Recent: Last Vital Signs Temp 99.3 F 03/23/21 04:41 Pulse 82 03/23/21 04:41 Resp 15 03/23/21 04:41 BP 131/81 03/23/21 04:41 Pulse Ox 94 L 03/23/21 04:41 Weight - Most Recent: 201 lb 8 oz I&O - Last 24 Hours: Intake & Output 03/22/21 03/23/21 03/23/21 22:59 06:59 14:59 Intake Total 2170 600 Output Total 400 975 Balance 1770 -375 Lab Results Last 24 Hours: Laboratory Results - last 24 hr 03/22/21 03/22/21 03/22/21 Range/Units 08:45 08:45 08:45 WBC (3.98-10.04) K/mm3 RBC (3.98-5.22) M/mm3 Hgb (11.2-15.7) gm/dl Hct (34.1-44.9) % MCV (79.4-94.8) fl MCH (25.6-32.2) pg MCHC (32.2-35.5) g/dl RDW Std Deviation (36.4-46.3) fL Plt Count (182-369) K/mm3 MPV (9.4-12.3) fl Neut % (Auto) (34.0-71.1) % Lymph % (Auto) (19.3-51.7) % [place] % (Auto) (4.7-12.5) % Eos % (Auto) (0.7-5.8) Baso % (Auto) (0.1-1.2) % Neut # (Auto) (1.56-6.13) K/mm3 Lymph # (Auto) (1.18-3.74) K/mm3 [place] # (Auto) (0.24-0.36) K/mm3 Eos # (Auto) (0.04-0.36) K/mm3 Baso # (Auto) (0.01-0.08) K/mm3 Sodium (136-145) mEq/L Potassium (3.5-5.1) mEq/L Chloride (98-107) mEq/L Carbon Dioxide (21-32) mEq/L Anion Gap (5-15) BUN (7-18) mg/dL Creatinine (0.55-1.02) mg/dL Est Cr Clr Drug Dosing mL/min Estimated GFR (MDRD) (>60) mL/min BUN/Creatinine Ratio (14-18) Glucose (70-99) mg/dL POC Glucose (70-99) mg/dL Hemoglobin A1c 12.5 H ( - 5.6) % Lactic Acid 0.6 (0.4-2.0) mmol/L Calcium (8.5-10.1) mg/dL Magnesium 1.7 L (1.8-2.4) mg/dL Total Bilirubin (0.2-1.0) mg/dL AST (15-37) U/L ALT (14-59) U/L Alkaline Phosphatase (46-116) U/L C-Reactive Protein (<1.0) mg/dL Total Protein (6.4-8.2) g/dl Albumin (3.4-5.0) g/dl Globulin gm/dL Albumin/Globulin Ratio (1-2) Procalcitonin ng/mL 03/22/21 03/22/21 03/22/21 Range/Units 09:15 10:49 16:36 WBC (3.98-10.04) K/mm3 RBC (3.98-5.22) M/mm3 Hgb (11.2-15.7) gm/dl Hct (34.1-44.9) % MCV (79.4-94.8) fl MCH (25.6-32.2) pg MCHC (32.2-35.5) g/dl RDW Std Deviation (36.4-46.3) fL Plt Count (182-369) K/mm3 MPV (9.4-12.3) fl Neut % (Auto) (34.0-71.1) % Lymph % (Auto) (19.3-51.7) % [place] % (Auto) (4.7-12.5) % Eos % (Auto) (0.7-5.8) Baso % (Auto) (0.1-1.2) % Neut # (Auto) (1.56-6.13) K/mm3 Lymph # (Auto) (1.18-3.74) K/mm3 [place] # (Auto) (0.24-0.36) K/mm3 Eos # (Auto) (0.04-0.36) K/mm3 Baso # (Auto) (0.01-0.08) K/mm3 Sodium (136-145) mEq/L Potassium (3.5-5.1) mEq/L Chloride (98-107) mEq/L Carbon Dioxide (21-32) mEq/L Anion Gap (5-15) BUN (7-18) mg/dL Creatinine (0.55-1.02) mg/dL Est Cr Clr Drug Dosing mL/min Estimated GFR (MDRD) (>60) mL/min BUN/Creatinine Ratio (14-18) Glucose (70-99) mg/dL POC Glucose 304 H 308 H (70-99) mg/dL Hemoglobin A1c ( - 5.6) % Lactic Acid (0.4-2.0) mmol/L Calcium (8.5-10.1) mg/dL Magnesium (1.8-2.4) mg/dL Total Bilirubin (0.2-1.0) mg/dL AST (15-37) U/L ALT (14-59) U/L Alkaline Phosphatase (46-116) U/L C-Reactive Protein (<1.0) mg/dL Total Protein (6.4-8.2) g/dl Albumin (3.4-5.0) g/dl Globulin gm/dL Albumin/Globulin Ratio (1-2) Procalcitonin 1.00 H ng/mL 03/22/21 03/23/21 03/23/21 Range/Units 21:57 06:20 07:38 WBC 11.27 H (3.98-10.04) K/mm3 RBC 4.34 (3.98-5.22) M/mm3 Hgb 12.3 (11.2-15.7) gm/dl Hct 37.3 (34.1-44.9) % MCV 85.9 (79.4-94.8) fl MCH 28.3 (25.6-32.2) pg MCHC 33.0 (32.2-35.5) g/dl RDW Std Deviation 38.8 (36.4-46.3) fL Plt Count 240 (182-369) K/mm3 MPV 11.6 (9.4-12.3) fl Neut % (Auto) 76.6 H (34.0-71.1) % Lymph % (Auto) 12.6 L (19.3-51.7) % [place] % (Auto) 9.7 (4.7-12.5) % Eos % (Auto) 0.5 L (0.7-5.8) Baso % (Auto) 0.3 (0.1-1.2) % Neut # (Auto) 8.64 H (1.56-6.13) K/mm3 Lymph # (Auto) 1.42 (1.18-3.74) K/mm3 [place] # (Auto) 1.09 H (0.24-0.36) K/mm3 Eos # (Auto) 0.06 (0.04-0.36) K/mm3 Baso # (Auto) 0.03 (0.01-0.08) K/mm3 Sodium (136-145) mEq/L Potassium (3.5-5.1) mEq/L Chloride (98-107) mEq/L Carbon Dioxide (21-32) mEq/L Anion Gap (5-15) BUN (7-18) mg/dL Creatinine (0.55-1.02) mg/dL Est Cr Clr Drug Dosing mL/min Estimated GFR (MDRD) (>60) mL/min BUN/Creatinine Ratio (14-18) Glucose (70-99) mg/dL POC Glucose 260 H 234 H (70-99) mg/dL Hemoglobin A1c ( - 5.6) % Lactic Acid (0.4-2.0) mmol/L Calcium (8.5-10.1) mg/dL Magnesium (1.8-2.4) mg/dL Total Bilirubin (0.2-1.0) mg/dL AST (15-37) U/L ALT (14-59) U/L Alkaline Phosphatase (46-116) U/L C-Reactive Protein (<1.0) mg/dL Total Protein (6.4-8.2) g/dl Albumin (3.4-5.0) g/dl Globulin gm/dL Albumin/Globulin Ratio (1-2) Procalcitonin ng/mL 03/23/21 Range/Units 07:38 WBC (3.98-10.04) K/mm3 RBC (3.98-5.22) M/mm3 Hgb (11.2-15.7) gm/dl Hct (34.1-44.9) % MCV (79.4-94.8) fl MCH (25.6-32.2) pg MCHC (32.2-35.5) g/dl RDW Std Deviation (36.4-46.3) fL Plt Count (182-369) K/mm3 MPV (9.4-12.3) fl Neut % (Auto) (34.0-71.1) % Lymph % (Auto) (19.3-51.7) % [place] % (Auto) (4.7-12.5) % Eos % (Auto) (0.7-5.8) Baso % (Auto) (0.1-1.2) % Neut # (Auto) (1.56-6.13) K/mm3 Lymph # (Auto) (1.18-3.74) K/mm3 [place] # (Auto) (0.24-0.36) K/mm3 Eos # (Auto) (0.04-0.36) K/mm3 Baso # (Auto) (0.01-0.08) K/mm3 Sodium 133 L (136-145) mEq/L Potassium 4.1 (3.5-5.1) mEq/L Chloride 99 (98-107) mEq/L Carbon Dioxide 24 (21-32) mEq/L Anion Gap 14.1 (5-15) BUN 8 (7-18) mg/dL Creatinine 0.6 (0.55-1.02) mg/dL Est Cr Clr Drug Dosing 90.41 mL/min Estimated GFR (MDRD) > 60 (>60) mL/min BUN/Creatinine Ratio 13.3 L (14-18) Glucose 247 H (70-99) mg/dL POC Glucose (70-99) mg/dL Hemoglobin A1c ( - 5.6) % Lactic Acid (0.4-2.0) mmol/L Calcium 8.4 L (8.5-10.1) mg/dL Magnesium 2.0 (1.8-2.4) mg/dL Total Bilirubin 0.4 (0.2-1.0) mg/dL AST 16 (15-37) U/L ALT 24 (14-59) U/L Alkaline Phosphatase 81 (46-116) U/L C-Reactive Protein 21.5 H* (<1.0) mg/dL Total Protein 7.1 (6.4-8.2) g/dl Albumin 2.3 L (3.4-5.0) g/dl Globulin 4.8 gm/dL Albumin/Globulin Ratio 0.5 L (1-2) Procalcitonin ng/mL Med Orders - Current: Current Medications Enoxaparin Sodium (Enoxaparin 40 Mg/0.4 Ml Syringe) 40 mg SUBCUT DAILY COUNTS INCLUDE 234 BEDS AT THE [facility] Last Admin: 03/23/21 08:12 Dose: 40 mg Documented by: Ceftriaxone Sodium 1 gm/ (Sodium Chloride) 100 mls @ 200 mls/hr IV Q24H COUNTS INCLUDE 234 BEDS AT THE [facility] Last Admin: 03/23/21 08:13 Dose: 200 mls/hr Documented by: Insulin Glargine (Insulin Glarg,Human.Rec.Analog 100 Unit/Ml) 20 unit SUBCUT DAILY COUNTS INCLUDE 234 BEDS AT THE [facility] Last Admin: 03/23/21 08:12 Dose: 20 units Documented by: Insulin Human Lispro (Insulin Lispro 100 Unit/Ml 10 Ml Vial) 0 unit SUBCUT QIDACANDBED COUNTS INCLUDE 234 BEDS AT THE [facility]; Protocol Last Admin: 03/23/21 08:11 Dose: 4 units Documented by: Insulin Human Lispro (Insulin Lispro 100 Unit/Ml 10 Ml Vial) 5 unit SUBCUT TIDAC COUNTS INCLUDE 234 BEDS AT THE [facility] Last Admin: 03/23/21 08:11 Dose: 5 units Documented by: Ondansetron HCl (Ondansetron 4 Mg/2 Ml Sdv) 4 mg IVPUSH Q6HR PRN PRN Reason: Nausea/Vomiting Discontinued Medications Sodium Chloride (Normal Saline) 1,000 mls @ 999 mls/hr IV ONETIME ONE Stop: 03/21/21 22:45 Last Admin: 03/21/21 22:01 Dose: 999 mls/hr Documented by: Sodium Chloride (Normal Saline) 1,000 mls @ 333 mls/hr IV ASDIRECTED GERALD Sodium Chloride (Normal Saline) 1,000 mls @ 333 mls/hr IV ASDIRECTED GERALD Last Admin: 03/22/21 09:54 Dose: 333 mls/hr Documented by: Magnesium Sulfate 2 gm/ Premix 50 mls @ 25 mls/hr IV ONETIME ONE Stop: 03/22/21 12:59 Last Admin: 03/22/21 12:23 Dose: 25 mls/hr Documented by: Insulin Human Regular (Insulin Regular, Human 100 Units/Ml 3 Ml Vial) 4 unit IV ONETIME STA Stop: 03/21/21 21:46 Last Admin: 03/21/21 22:01 Dose: 4 unit Documented by: Ondansetron HCl (Ondansetron 4 Mg/2 Ml Sdv) 4 mg IVPUSH ONETIME ONE Stop: 03/22/21 02:30 Last Admin: 03/22/21 03:58 Dose: Not Given Documented by: - Exam Quality Assessment: No: Supplemental Oxygen General: Alert, Oriented HEENT: Pupils Equal, Mucous Membr. Moist/Cleary Neck: Supple Lungs: Clear to Auscultation, Normal Respiratory Effort Cardiovascular: Regular Rate, Regular Rhythm GI/Abdominal Exam: Normal Bowel Sounds, Soft, Non-Tender, No Organomegaly, No Distention Extremities: Normal Inspection, Normal Range of Motion, Non-Tender, No Pedal Edema Skin: Warm, Dry, Intact Psy/Mental Status: Alert, Normal Affect, Normal Mood - Patient Data Lab Results Last 24 hrs: Laboratory Results - last 24 hr 03/22/21 03/22/21 03/22/21 Range/Units 08:45 08:45 08:45 WBC (3.98-10.04) K/mm3 RBC (3.98-5.22) M/mm3 Hgb (11.2-15.7) gm/dl Hct (34.1-44.9) % MCV (79.4-94.8) fl MCH (25.6-32.2) pg MCHC (32.2-35.5) g/dl RDW Std Deviation (36.4-46.3) fL Plt Count (182-369) K/mm3 MPV (9.4-12.3) fl Neut % (Auto) (34.0-71.1) % Lymph % (Auto) (19.3-51.7) % [place] % (Auto) (4.7-12.5) % Eos % (Auto) (0.7-5.8) Baso % (Auto) (0.1-1.2) % Neut # (Auto) (1.56-6.13) K/mm3 Lymph # (Auto) (1.18-3.74) K/mm3 [place] # (Auto) (0.24-0.36) K/mm3 Eos # (Auto) (0.04-0.36) K/mm3 Baso # (Auto) (0.01-0.08) K/mm3 Sodium (136-145) mEq/L Potassium (3.5-5.1) mEq/L Chloride (98-107) mEq/L Carbon Dioxide (21-32) mEq/L Anion Gap (5-15) BUN (7-18) mg/dL Creatinine (0.55-1.02) mg/dL Est Cr Clr Drug Dosing mL/min Estimated GFR (MDRD) (>60) mL/min BUN/Creatinine Ratio (14-18) Glucose (70-99) mg/dL POC Glucose (70-99) mg/dL Hemoglobin A1c 12.5 H ( - 5.6) % Lactic Acid 0.6 (0.4-2.0) mmol/L Calcium (8.5-10.1) mg/dL Magnesium 1.7 L (1.8-2.4) mg/dL Total Bilirubin (0.2-1.0) mg/dL AST (15-37) U/L ALT (14-59) U/L Alkaline Phosphatase (46-116) U/L C-Reactive Protein (<1.0) mg/dL Total Protein (6.4-8.2) g/dl Albumin (3.4-5.0) g/dl Globulin gm/dL Albumin/Globulin Ratio (1-2) Procalcitonin ng/mL 03/22/21 03/22/21 03/22/21 Range/Units 09:15 10:49 16:36 WBC (3.98-10.04) K/mm3 RBC (3.98-5.22) M/mm3 Hgb (11.2-15.7) gm/dl Hct (34.1-44.9) % MCV (79.4-94.8) fl MCH (25.6-32.2) pg MCHC (32.2-35.5) g/dl RDW Std Deviation (36.4-46.3) fL Plt Count (182-369) K/mm3 MPV (9.4-12.3) fl Neut % (Auto) (34.0-71.1) % Lymph % (Auto) (19.3-51.7) % [place] % (Auto) (4.7-12.5) % Eos % (Auto) (0.7-5.8) Baso % (Auto) (0.1-1.2) % Neut # (Auto) (1.56-6.13) K/mm3 Lymph # (Auto) (1.18-3.74) K/mm3 [place] # (Auto) (0.24-0.36) K/mm3 Eos # (Auto) (0.04-0.36) K/mm3 Baso # (Auto) (0.01-0.08) K/mm3 Sodium (136-145) mEq/L Potassium (3.5-5.1) mEq/L Chloride (98-107) mEq/L Carbon Dioxide (21-32) mEq/L Anion Gap (5-15) BUN (7-18) mg/dL Creatinine (0.55-1.02) mg/dL Est Cr Clr Drug Dosing mL/min Estimated GFR (MDRD) (>60) mL/min BUN/Creatinine Ratio (14-18) Glucose (70-99) mg/dL POC Glucose 304 H 308 H (70-99) mg/dL Hemoglobin A1c ( - 5.6) % Lactic Acid (0.4-2.0) mmol/L Calcium (8.5-10.1) mg/dL Magnesium (1.8-2.4) mg/dL Total Bilirubin (0.2-1.0) mg/dL AST (15-37) U/L ALT (14-59) U/L Alkaline Phosphatase (46-116) U/L C-Reactive Protein (<1.0) mg/dL Total Protein (6.4-8.2) g/dl Albumin (3.4-5.0) g/dl Globulin gm/dL Albumin/Globulin Ratio (1-2) Procalcitonin 1.00 H ng/mL 03/22/21 03/23/21 03/23/21 Range/Units 21:57 06:20 07:38 WBC 11.27 H (3.98-10.04) K/mm3 RBC 4.34 (3.98-5.22) M/mm3 Hgb 12.3 (11.2-15.7) gm/dl Hct 37.3 (34.1-44.9) % MCV 85.9 (79.4-94.8) fl MCH 28.3 (25.6-32.2) pg MCHC 33.0 (32.2-35.5) g/dl RDW Std Deviation 38.8 (36.4-46.3) fL Plt Count 240 (182-369) K/mm3 MPV 11.6 (9.4-12.3) fl Neut % (Auto) 76.6 H (34.0-71.1) % Lymph % (Auto) 12.6 L (19.3-51.7) % [place] % (Auto) 9.7 (4.7-12.5) % Eos % (Auto) 0.5 L (0.7-5.8) Baso % (Auto) 0.3 (0.1-1.2) % Neut # (Auto) 8.64 H (1.56-6.13) K/mm3 Lymph # (Auto) 1.42 (1.18-3.74) K/mm3 [place] # (Auto) 1.09 H (0.24-0.36) K/mm3 Eos # (Auto) 0.06 (0.04-0.36) K/mm3 Baso # (Auto) 0.03 (0.01-0.08) K/mm3 Sodium (136-145) mEq/L Potassium (3.5-5.1) mEq/L Chloride (98-107) mEq/L Carbon Dioxide (21-32) mEq/L Anion Gap (5-15) BUN (7-18) mg/dL Creatinine (0.55-1.02) mg/dL Est Cr Clr Drug Dosing mL/min Estimated GFR (MDRD) (>60) mL/min BUN/Creatinine Ratio (14-18) Glucose (70-99) mg/dL POC Glucose 260 H 234 H (70-99) mg/dL Hemoglobin A1c ( - 5.6) % Lactic Acid (0.4-2.0) mmol/L Calcium (8.5-10.1) mg/dL Magnesium (1.8-2.4) mg/dL Total Bilirubin (0.2-1.0) mg/dL AST (15-37) U/L ALT (14-59) U/L Alkaline Phosphatase (46-116) U/L C-Reactive Protein (<1.0) mg/dL Total Protein (6.4-8.2) g/dl Albumin (3.4-5.0) g/dl Globulin gm/dL Albumin/Globulin Ratio (1-2) Procalcitonin ng/mL 03/23/21 Range/Units 07:38 WBC (3.98-10.04) K/mm3 RBC (3.98-5.22) M/mm3 Hgb (11.2-15.7) gm/dl Hct (34.1-44.9) % MCV (79.4-94.8) fl MCH (25.6-32.2) pg MCHC (32.2-35.5) g/dl RDW Std Deviation (36.4-46.3) fL Plt Count (182-369) K/mm3 MPV (9.4-12.3) fl Neut % (Auto) (34.0-71.1) % Lymph % (Auto) (19.3-51.7) % [place] % (Auto) (4.7-12.5) % Eos % (Auto) (0.7-5.8) Baso % (Auto) (0.1-1.2) % Neut # (Auto) (1.56-6.13) K/mm3 Lymph # (Auto) (1.18-3.74) K/mm3 [place] # (Auto) (0.24-0.36) K/mm3 Eos # (Auto) (0.04-0.36) K/mm3 Baso # (Auto) (0.01-0.08) K/mm3 Sodium 133 L (136-145) mEq/L Potassium 4.1 (3.5-5.1) mEq/L Chloride 99 (98-107) mEq/L Carbon Dioxide 24 (21-32) mEq/L Anion Gap 14.1 (5-15) BUN 8 (7-18) mg/dL Creatinine 0.6 (0.55-1.02) mg/dL Est Cr Clr Drug Dosing 90.41 mL/min Estimated GFR (MDRD) > 60 (>60) mL/min BUN/Creatinine Ratio 13.3 L (14-18) Glucose 247 H (70-99) mg/dL POC Glucose (70-99) mg/dL Hemoglobin A1c ( - 5.6) % Lactic Acid (0.4-2.0) mmol/L Calcium 8.4 L (8.5-10.1) mg/dL Magnesium 2.0 (1.8-2.4) mg/dL Total Bilirubin 0.4 (0.2-1.0) mg/dL AST 16 (15-37) U/L ALT 24 (14-59) U/L Alkaline Phosphatase 81 (46-116) U/L C-Reactive Protein 21.5 H* (<1.0) mg/dL Total Protein 7.1 (6.4-8.2) g/dl Albumin 2.3 L (3.4-5.0) g/dl Globulin 4.8 gm/dL Albumin/Globulin Ratio 0.5 L (1-2) Procalcitonin ng/mL Result Diagrams: 03/23/21 07:38 03/23/21 07:38 Sepsis Event Note - Evaluation Sepsis Screening Result: No Definite Risk - Focused Exam Vital Signs: Vital Signs Temp Pulse Resp BP BP Pulse Ox 03/23/21 04:41 99.3 F 82 15 131/81 94 L 03/22/21 22:00 99.5 F 93 13 142/69 H 92 L - Problem List & Annotations (1) Complicated UTI (urinary tract infection) SNOMED Code(s): 05342005 Code(s): N39.0 - URINARY TRACT INFECTION, SITE NOT SPECIFIED Status: Acute Current Visit: Yes (2) SIRS (systemic inflammatory response syndrome) SNOMED Code(s): 272766573 Code(s): R65.10 - SIRS OF NON-INFECTIOUS ORIGIN W/O ACUTE ORGAN DYSFUNCTION Status: Acute Current Visit: Yes (3) Hyperglycemia due to type 2 diabetes mellitus SNOMED Code(s): 576560743002611, 850222457446462 Code(s): E11.65 - TYPE 2 DIABETES MELLITUS WITH HYPERGLYCEMIA Status: Acute Current Visit: Yes - Problem List Review Problem List Initiated/Reviewed/Updated: Yes - My Orders Last 24 Hours: My Active Orders 03/22/21 08:15 [email or web address] [Rocephin] 1 gm Sodium Chloride 0.9% [Normal Saline] 100 ml IV Q24H 03/22/21 10:33 Blood Glucose Check, Bedside [RC] WITHMEALSANDBED 03/22/21 10:45 Insulin Glarg,Human.Rec.Analog [LantUS] 20 unit SUBCUT DAILY 03/22/21 Lunch Consistent Carbohydrate Diet [DIET] Enoxaparin [Lovenox] 40 mg SUBCUT DAILY Insulin Lispro [HumaLOG] See Protocol SUBCUT QIDACANDBED 03/22/21 11:50 Admission Status [Patient Status] [ADT] Routine 03/23/21 07:00 Insulin Lispro [HumaLOG] 5 unit SUBCUT TIDAC - Plan Plan:: 55-year-old female with uncontrolled diabetes presents with flulike illness -Covid negative UTI, complicated -improved -Initially tachypneic, respiratory rate of 22, tachycardic, heart rate of 99, -WBC 16.77-->11.3 -CRP 50-->21.5 -Lactic acid negative -Procalcitonin 1.0 -Blood and urine cultures pending -Rocephin 1 g every 24 hours Uncontrolled type 2 diabetes -Hemoglobin A1c greater than 12 -Initial blood sugar 398 blood sugars still in the 300s and upper 200s. -Noncompliant with Metformin. -We will get microalbumin to creatinine ratio when UTI is treated -Fingerstick blood sugars before every meal and at bedtime -Increase Lantus 20 units a.m. and 10 units p.m. -NovoLog 5 units before each meal -Medium dose sliding scale insulin Elevated blood pressure without diagnosis of hypertension -Initial blood pressure 154/94 -Blood pressures now in the 130s over 50s -We will monitor and if elevated microalbumin to creatinine ratio will start A CE/ARB Hypomagnesemia -resolved -Magnesium 1.7-->2.0 -Recheck in the morning Obesity -BMI 34 Follow CBC, CMP, CRP, mag VTE prophylaxis with Lovenox CODE STATUS: Full code
[2021-03-23] MEDS: Cyclobenzaprine 10 MG Tab PO PRN ×2 (12:26→21:27)
[2021-03-23] MEDS ORDERED: Insulin Glarg,Human.Rec.Analog 100 Unit/ML SUBCUT SCH (21:00)
[2021-03-24] MEDS: Insulin Glarg,Human.Rec.Analog 100 Unit/ML SUBCUT SCH (08:27)
[2021-03-24] MEDS: Insulin Lispro 100 UNIT/ML 10 ML Vial SUBCUT SCH ×4 (08:28→12:40)
[2021-03-24] MEDS: Enoxaparin 40 MG/0.4 ML Syringe SUBCUT SCH (08:29)
[2021-03-24] MEDS: cefTRIAXone 1 GM in Sodium Chloride 0.9% 100 ML IV SCH (08:29)
[2021-03-24 09:21] VITALS: BP 132/62; PULSE 86
--- NOTE | 2021-03-24 12:17 | PCM.DCSUM1 ---
Discharge Summary - Hospital Course Free Text/Narrative:: MrsGilberto is a 55 y/o obese [place] female admitted with weakness, hyperglycemia with blood glucose in the 400's, UTI and sepsis. She grew pansensitive enterobacter in her urine. She was treated wiht IV Rocephin. She also received insulin. Her A1c was 12.5 Pt was supposed to be on metformin as an outpt but for some reason she stopped taking it on her own. During this hospital stay she was advised to start taking insulin along with metoformin. She was also advised to check her blood glucose at least twice a day and take her results to her PCP for medication adjustments. She was discharged home on 03/24 in a stable condition. Activity: as tolerated Diet: diabetic Follow up with PCP in 1 wk Discharge time was 35 minutes. Physical exam: General: obese middle aged female. In no acute distress CVS: S1S2 appreciated. RRR lungs: Clear bilaterally pa: obese, soft, non tender. bowel sounds present ext: no clubbing, cyanosis or edema neuro: no focal deficits. Gait is normal psych: stable mood and affect. Diagnosis: Stroke: No - Discharge Data Discharge Date: 03/24/21 Discharge Disposition: Home, Self-Care 01 Condition: Good - Referral to Home Health Primary Care Physician: Digna Razo NP - Patient Instructions Diet: Diabetic Diet Activity: As Tolerated Driving: May Drive Today - Discharge Plan *PRESCRIPTION DRUG MONITORING PROGRAM REVIEWED*: No *COPY OF PRESCRIPTION DRUG MONITORING REPORT IN PATIENT ALPESH: No Prescriptions/Med Rec: Cefdinir 300 mg PO BID #10 capsule metFORMIN [Glucophage XR] 500 mg PO BIDMEALS #60 Insulin Glarg,Human.Rec.Analog [Lantus] 20 unit SUBCUT BID #1000 ml Home Medications: Home Meds Cefdinir 300 mg PO BID #10 capsule 03/24/21 [Rx] Insulin Glarg,Human.Rec.Analog [Lantus] 20 unit SUBCUT BID #1000 ml 03/24/21 [Rx] metFORMIN [Glucophage XR] 500 mg PO BIDMEALS #60 03/24/21 [Rx] Patient Handouts: Steps to Quit Smoking Forms: ED Department Discharge Referrals: Digna Razo NP [Primary Care Provider] - - Discharge Summary/Plan Comment DC Time >30 min.: Yes Total # of Minutes for Discharge Time: 35 minutes - Patient Data Vitals - Most Recent: Last Vital Signs Temp 98.8 F 03/24/21 08:23 Pulse 86 03/24/21 08:23 Resp 16 03/24/21 08:23 BP 132/62 03/24/21 08:23 Pulse Ox 94 L 03/24/21 08:23 Weight - Most Recent: 200 lb 4.8 oz I&O - Last 24 hours: Intake & Output 03/23/21 03/24/21 03/24/21 22:59 06:59 14:59 Intake Total 650 800 Output Total 950 Balance 650 -150 Lab Results - Last 24 hrs: Laboratory Results - last 24 hr 03/23/21 03/23/21 03/23/21 Range/Units 12:10 16:34 19:27 WBC (3.98-10.04) K/mm3 RBC (3.98-5.22) M/mm3 Hgb (11.2-15.7) gm/dl Hct (34.1-44.9) % MCV (79.4-94.8) fl MCH (25.6-32.2) pg MCHC (32.2-35.5) g/dl RDW Std Deviation (36.4-46.3) fL Plt Count (182-369) K/mm3 MPV (9.4-12.3) fl Neut % (Auto) (34.0-71.1) % Lymph % (Auto) (19.3-51.7) % [place] % (Auto) (4.7-12.5) % Eos % (Auto) (0.7-5.8) Baso % (Auto) (0.1-1.2) % Neut # (Auto) (1.56-6.13) K/mm3 Lymph # (Auto) (1.18-3.74) K/mm3 [place] # (Auto) (0.24-0.36) K/mm3 Eos # (Auto) (0.04-0.36) K/mm3 Baso # (Auto) (0.01-0.08) K/mm3 Sodium (136-145) mEq/L Potassium (3.5-5.1) mEq/L Chloride (98-107) mEq/L Carbon Dioxide (21-32) mEq/L Anion Gap (5-15) BUN (7-18) mg/dL Creatinine (0.55-1.02) mg/dL Est Cr Clr Drug Dosing mL/min Estimated GFR (MDRD) (>60) mL/min BUN/Creatinine Ratio (14-18) Glucose (70-99) mg/dL POC Glucose 279 H 263 H (70-99) mg/dL Calcium (8.5-10.1) mg/dL Magnesium (1.8-2.4) mg/dL Ur Random Creatinine 74.4 (30.0-125.0) mg/dL Ur Random Microalbumin 158.4 H (1.3-20.0) mg/L Microalb/Creat Ratio 212.9 H (0-30) mg/g 03/23/21 03/24/21 03/24/21 Range/Units 20:22 04:26 05:03 WBC 8.60 (3.98-10.04) K/mm3 RBC 4.28 (3.98-5.22) M/mm3 Hgb 12.0 (11.2-15.7) gm/dl Hct 36.9 (34.1-44.9) % MCV 86.2 (79.4-94.8) fl MCH 28.0 (25.6-32.2) pg MCHC 32.5 (32.2-35.5) g/dl RDW Std Deviation 38.8 (36.4-46.3) fL Plt Count 239 (182-369) K/mm3 MPV 11.5 (9.4-12.3) fl Neut % (Auto) 69.5 (34.0-71.1) % Lymph % (Auto) 19.0 L (19.3-51.7) % [place] % (Auto) 9.7 (4.7-12.5) % Eos % (Auto) 1.0 (0.7-5.8) Baso % (Auto) 0.5 (0.1-1.2) % Neut # (Auto) 5.98 (1.56-6.13) K/mm3 Lymph # (Auto) 1.63 (1.18-3.74) K/mm3 [place] # (Auto) 0.83 H (0.24-0.36) K/mm3 Eos # (Auto) 0.09 (0.04-0.36) K/mm3 Baso # (Auto) 0.04 (0.01-0.08) K/mm3 Sodium (136-145) mEq/L Potassium (3.5-5.1) mEq/L Chloride (98-107) mEq/L Carbon Dioxide (21-32) mEq/L Anion Gap (5-15) BUN (7-18) mg/dL Creatinine (0.55-1.02) mg/dL Est Cr Clr Drug Dosing mL/min Estimated GFR (MDRD) (>60) mL/min BUN/Creatinine Ratio (14-18) Glucose (70-99) mg/dL POC Glucose 273 H 190 H (70-99) mg/dL Calcium (8.5-10.1) mg/dL Magnesium (1.8-2.4) mg/dL Ur Random Creatinine (30.0-125.0) mg/dL Ur Random Microalbumin (1.3-20.0) mg/L Microalb/Creat Ratio (0-30) mg/g 03/24/21 03/24/21 03/24/21 Range/Units 05:03 06:58 11:45 WBC (3.98-10.04) K/mm3 RBC (3.98-5.22) M/mm3 Hgb (11.2-15.7) gm/dl Hct (34.1-44.9) % MCV (79.4-94.8) fl MCH (25.6-32.2) pg MCHC (32.2-35.5) g/dl RDW Std Deviation (36.4-46.3) fL Plt Count (182-369) K/mm3 MPV (9.4-12.3) fl Neut % (Auto) (34.0-71.1) % Lymph % (Auto) (19.3-51.7) % [place] % (Auto) (4.7-12.5) % Eos % (Auto) (0.7-5.8) Baso % (Auto) (0.1-1.2) % Neut # (Auto) (1.56-6.13) K/mm3 Lymph # (Auto) (1.18-3.74) K/mm3 [place] # (Auto) (0.24-0.36) K/mm3 Eos # (Auto) (0.04-0.36) K/mm3 Baso # (Auto) (0.01-0.08) K/mm3 Sodium 138 (136-145) mEq/L Potassium 3.9 (3.5-5.1) mEq/L Chloride 104 (98-107) mEq/L Carbon Dioxide 23 (21-32) mEq/L Anion Gap 14.9 (5-15) BUN 9 (7-18) mg/dL Creatinine 0.6 (0.55-1.02) mg/dL Est Cr Clr Drug Dosing 90.41 mL/min Estimated GFR (MDRD) > 60 (>60) mL/min BUN/Creatinine Ratio 15.0 (14-18) Glucose 225 H (70-99) mg/dL POC Glucose 215 H 268 H (70-99) mg/dL Calcium 8.7 (8.5-10.1) mg/dL Magnesium 1.8 (1.8-2.4) mg/dL Ur Random Creatinine (30.0-125.0) mg/dL Ur Random Microalbumin (1.3-20.0) mg/L Microalb/Creat Ratio (0-30) mg/g KELI Results - Last 24 hrs: Microbiology 03/21/21 20:40 Urine Culture - Preliminary Urine Enterobacter Aerogenes 03/21/21 22:10 Blood Culture - Preliminary Blood - Venous - Lab Draw 03/21/21 22:00 Blood Culture - Preliminary Blood - Venous Med Orders - Current: Current Medications Cyclobenzaprine HCl (Cyclobenzaprine 10 Mg Tab) 10 mg PO Q8H PRN PRN Reason: Spasms Last Admin: 03/23/21 21:27 Dose: 10 mg Documented by: Enoxaparin Sodium (Enoxaparin 40 Mg/0.4 Ml Syringe) 40 mg SUBCUT DAILY [facility] Last Admin: 03/24/21 08:29 Dose: 40 mg Documented by: Ceftriaxone Sodium 1 gm/ (Sodium Chloride) 100 mls @ 200 mls/hr IV Q24H GERALD Last Admin: 03/24/21 08:29 Dose: 200 mls/hr Documented by: Insulin Glargine (Insulin Glarg,Human.Rec.Analog 100 Unit/Ml) 20 unit SUBCUT DAILY [facility] Last Admin: 03/24/21 08:27 Dose: 20 units Documented by: Insulin Glargine (Insulin Glarg,Human.Rec.Analog 100 Unit/Ml) 10 unit SUBCUT BEDTIME [facility] Last Admin: 03/23/21 21:15 Dose: 10 units Documented by: Insulin Human Lispro (Insulin Lispro 100 Unit/Ml 10 Ml Vial) 0 unit SUBCUT QIDACANDBED [facility]; Protocol Last Admin: 03/24/21 08:28 Dose: 4 units Documented by: Insulin Human Lispro (Insulin Lispro 100 Unit/Ml 10 Ml Vial) 5 unit SUBCUT TIDAC [facility] Last Admin: 03/24/21 08:28 Dose: 5 units Documented by: Ondansetron HCl (Ondansetron 4 Mg/2 Ml Sdv) 4 mg IVPUSH Q6HR PRN PRN Reason: Nausea/Vomiting Last Admin: 03/24/21 04:31 Dose: 4 mg Documented by: Discontinued Medications Sodium Chloride (Normal Saline) 1,000 mls @ 999 mls/hr IV ONETIME ONE Stop: 03/21/21 22:45 Last Admin: 03/21/21 22:01 Dose: 999 mls/hr Documented by: Sodium Chloride (Normal Saline) 1,000 mls @ 333 mls/hr IV ASDIRECTED [facility] Sodium Chloride (Normal Saline) 1,000 mls @ 333 mls/hr IV ASDIRECTED [facility] Last Admin: 03/22/21 09:54 Dose: 333 mls/hr Documented by: Magnesium Sulfate 2 gm/ Premix 50 mls @ 25 mls/hr IV ONETIME ONE Stop: 03/22/21 12:59 Last Admin: 03/22/21 12:23 Dose: 25 mls/hr Documented by: Insulin Human Regular (Insulin Regular, Human 100 Units/Ml 3 Ml Vial) 4 unit IV ONETIME STA Stop: 03/21/21 21:46 Last Admin: 03/21/21 22:01 Dose: 4 unit Documented by: Ondansetron HCl (Ondansetron 4 Mg/2 Ml Sdv) 4 mg IVPUSH ONETIME ONE Stop: 03/22/21 02:30 Last Admin: 03/22/21 03:58 Dose: Not Given Documented by:
== END 2021-03-24 14:08 | disposition home or self-care (01) | DRG 872 ==
LOC: JD.ED 20:15 → JD.MS 03-22 02:04 → OBSVTOIN 03-22 11:50
PROVIDERS: ADMIT Family Medicine; ATTEND Family Medicine
DX: A41.89 Other specified sepsis (principal); N39.0 Urinary tract infection, site not specified; E11.65 Type 2 diabetes mellitus with hyperglycemia; Z20.822 Contact with and (suspected) exposure to COVID-19; E83.42 Hypomagnesemia; E66.9 Obesity, unspecified; E78.00 Pure hypercholesterolemia, unspecified; Z68.34 Body mass index [BMI] 34.0-34.9, adult; Z79.84 Long term (current) use of oral hypoglycemic drugs; Z87.891 Personal history of nicotine dependence; Z98.51 Tubal ligation status
CPT/HCPCS: 36415; 71045; 71045-26; 80048; 80053; 81001; 82009; 82043; 82947; 83036; 83605; 83735; 84145; 85025; 86140; 87040; 87086; 87088; 87186; 87804; 99285; 99285-25; A9270-GY; J0696; J1650; J1815-GY; J2405; J3475; J7030; U0002

== ENCOUNTER 2024-04-19 15:36 | Emergency (ER) | payer BC ==
[2024-04-19 16:39] LABS: BASOPHILS ABSOLUTE AUTO 0.1 K/mm3 (0.0-0.2); BASOPHILS PERCENT AUTO 0.3 % (0.0-1.0); EOSINOPHILS PERCENT AUTO 0.2 % (0.0-6.0); HEMATOCRIT 41.8 % (37.0-47.0); HEMOGLOBIN 14.1 gm/dl (12.0-16.0); IMMATURE GRAN ABSOLUTE AUTO 0.08 K/mm3 (0.00-0.05); IMMATURE GRAN PERCENT AUTO 0.4 % (0.0-0.4); LYMPHOCYTES ABSOLUTE AUTO 1.4 K/mm3 (1.0-4.8); LYMPHOCYTES PERCENT AUTO 7.7 % (24.0-44.0); MEAN CORPUSCULAR HEMOGLOBIN 28.8 pg (28.0-32.0); MEAN CORPUSCULAR HGB CONC 33.7 g/dl (32.0-36.0); MEAN CORPUSCULAR VOLUME 85.3 fl (83.0-99.0); MEAN PLATELET VOLUME 12.5 fl (9.4-12.3); MONOCYTES ABSOLUTE AUTO 1.4 K/mm3 (0.0-0.8); MONOCYTES PERCENT AUTO 7.7 % (0.0-8.0); NEUTROPHILS ABSOLUTE AUTO 15.5 K/mm3 (1.8-7.7); NEUTROPHILS PERCENT AUTO 83.7 % (41.0-71.0); PLATELET COUNT,PLT 203 K/mm3 (150-400); WHITE BLOOD CELL COUNT,WBC 18.55 K/mm3 (3.9-11.3)
[2024-04-19] MEDS: Sodium Chloride 0.9% 1,000 ML IV SCH (17:06)
[2024-04-19 17:09] LABS: A/G RATIO 0.8 (1-2); ALBUMIN 3.3 g/dl (3.4-5.0); ANION GAP 16.9 (5-15); BILIRUBIN TOTAL 0.5 mg/dL (0.2-1.0); BUN/CREATININE RATIO 8.8 (14-18); C-REACTIVE PROTEIN 10.19 mg/dL (<0.30); CREATININE 0.8 mg/dL (0.55-1.02); EST CRCL DRUG DOSING (CG) 65.38 mL/min; POTASSIUM,K 3.9 mEq/L (3.5-5.1); PROTEIN TOTAL,TP 7.4 g/dl (6.4-8.2)
[2024-04-19 17:12] LABS: LACTIC ACID 1.1 mmol/L (0.4-2.0)
[2024-04-19] MEDS: Levofloxacin/Dextrose 5%-Water 750 MG in Premix Bag 1 BAG IV ONE (17:33)
[2024-04-19 19:32] VITALS: BP 128/49; PULSE 92
== END 2024-04-19 19:31 | disposition home or self-care (01) ==
LOC: JD.ED 15:36
DX: N12 Tubulo-interstitial nephritis, not specified as acute or chronic (principal); E78.00 Pure hypercholesterolemia, unspecified; E66.9 Obesity, unspecified; E11.9 Type 2 diabetes mellitus without complications; Z79.4 Long term (current) use of insulin; Z68.31 Body mass index [BMI] 31.0-31.9, adult
CPT/HCPCS: 36415; 80053; 82947; 83605; 83690; 85025; 86140; 93005; 96365; 99284; J1956; J7030; 93010

== ENCOUNTER 2024-10-27 14:09 | Emergency (ER) | payer BC ==
[2024-10-27 14:14] VITALS: BP 189/70; PULSE 75
[2024-10-27] MEDS: HYDROmorphone 0.5 MG/0.5 ML Syringe IVPUSH ONE (14:56)
[2024-10-27] MEDS: Metoclopramide 10 MG/2 ML SDV IVPUSH ONE (14:56)
[2024-10-27] MEDS: Sodium Chloride 0.9% 1,000 ML IV SCH (15:03)
[2024-10-27] MEDS: Sodium Chloride 0.9% 10 ML Syringe FLUSH PRN (15:05)
[2024-10-27 15:13] LABS: BASOPHILS ABSOLUTE AUTO 0.1 K/mm3 (0.0-0.2); BASOPHILS PERCENT AUTO 0.5 % (0.0-1.0); EOSINOPHILS PERCENT AUTO 0.1 % (0.0-6.0); HEMATOCRIT 43.9 % (37.0-47.0); HEMOGLOBIN 14.8 gm/dl (12.0-16.0); IMMATURE GRAN ABSOLUTE AUTO 0.06 K/mm3 (0.00-0.05); IMMATURE GRAN PERCENT AUTO 0.5 % (0.0-0.4); LYMPHOCYTES ABSOLUTE AUTO 1.4 K/mm3 (1.0-4.8); LYMPHOCYTES PERCENT AUTO 11.5 % (24.0-44.0); MEAN CORPUSCULAR HEMOGLOBIN 28.9 pg (28.0-32.0); MEAN CORPUSCULAR HGB CONC 33.7 g/dl (32.0-36.0); MEAN CORPUSCULAR VOLUME 85.7 fl (83.0-99.0); MEAN PLATELET VOLUME 12.1 fl (9.4-12.3); MONOCYTES ABSOLUTE AUTO 0.4 K/mm3 (0.0-0.8); MONOCYTES PERCENT AUTO 2.9 % (0.0-8.0); NEUTROPHILS ABSOLUTE AUTO 10.3 K/mm3 (1.8-7.7); NEUTROPHILS PERCENT AUTO 84.5 % (41.0-71.0); PLATELET COUNT,PLT 244 K/mm3 (150-400); RED BLOOD CELL COUNT 5.12 M/mm3 (4.10-5.30); WHITE BLOOD CELL COUNT,WBC 12.16 K/mm3 (3.9-11.3)
[2024-10-27 15:42] LABS: ALBUMIN 3.7 g/dl (3.4-5.0); ANION GAP 21.5 (5-15); BILIRUBIN TOTAL 0.8 mg/dL (0.2-1.0); BUN/CREATININE RATIO 16.7 (14-18); CALCIUM 9.6 mg/dL (8.5-10.1); CREATININE 0.9 mg/dL (0.55-1.02); EST CRCL DRUG DOSING (CG) 57.4 mL/min; MAGNESIUM 1.7 mg/dL (1.8-2.4); POTASSIUM,K 4.5 mEq/L (3.5-5.1); PROTEIN TOTAL,TP 7.6 g/dl (6.4-8.2)
[2024-10-27 16:28] LABS: HEMOGLOBIN A1C 8.2 %
== END 2024-10-27 16:50 ==
LOC: JD.ED 14:09
DX: K52.9 Noninfective gastroenteritis and colitis, unspecified (principal); E11.65 Type 2 diabetes mellitus with hyperglycemia; E66.9 Obesity, unspecified; R51.9 Headache, unspecified; Z79.899 Other long term (current) drug therapy; Z79.4 Long term (current) use of insulin; Z79.890 Hormone replacement therapy
CPT/HCPCS: 36415; 70450; 70450-26; 80053; 82010; 82800; 82947; 83036; 83735; 83930; 84484; 85025; 93005; 93010; 96361; 96374; 96375; 99284; 99285-25; J2765; J7030

== ENCOUNTER 2024-10-28 11:49 | Emergency (ER) | payer BC ==
[2024-10-28] MEDS ORDERED: Sodium Chloride 0.9% 10 ML Syringe FLUSH PRN (12:27)
[2024-10-28] MEDS: Sodium Chloride 0.9% 1,000 ML IV STA (12:41)
[2024-10-28] MEDS: Ondansetron 4 MG/2 ML SDV IVPUSH ONE (12:41)
[2024-10-28 12:58] LABS: BASOPHILS PERCENT AUTO 0.3 % (0.0-1.0); EOSINOPHILS PERCENT AUTO 0.2 % (0.0-6.0); HEMATOCRIT 40.8 % (37.0-47.0); HEMOGLOBIN 13.8 gm/dl (12.0-16.0); IMMATURE GRAN ABSOLUTE AUTO 0.06 K/mm3 (0.00-0.05); IMMATURE GRAN PERCENT AUTO 0.4 % (0.0-0.4); LYMPHOCYTES ABSOLUTE AUTO 1.2 K/mm3 (1.0-4.8); LYMPHOCYTES PERCENT AUTO 8.5 % (24.0-44.0); MEAN CORPUSCULAR HGB CONC 33.8 g/dl (32.0-36.0); MEAN CORPUSCULAR VOLUME 85.7 fl (83.0-99.0); MEAN PLATELET VOLUME 12.5 fl (9.4-12.3); MONOCYTES ABSOLUTE AUTO 0.5 K/mm3 (0.0-0.8); MONOCYTES PERCENT AUTO 3.1 % (0.0-8.0); NEUTROPHILS ABSOLUTE AUTO 12.6 K/mm3 (1.8-7.7); NEUTROPHILS PERCENT AUTO 87.5 % (41.0-71.0); PLATELET COUNT,PLT 266 K/mm3 (150-400); RED BLOOD CELL COUNT 4.76 M/mm3 (4.10-5.30); WHITE BLOOD CELL COUNT,WBC 14.43 K/mm3 (3.9-11.3)
[2024-10-28] MEDS: Iopamidol 612 MG/ML 100 ML Bottle IVPUSH ONE (13:18)
[2024-10-28] MEDS: Sodium Chloride 0.9% 10 ML Syringe FLUSH ONE (13:18)
[2024-10-28 13:19] LABS: ANION GAP 16.6 (5-15); BILIRUBIN TOTAL 0.6 mg/dL (0.2-1.0); BUN/CREATININE RATIO 14.4 (14-18); C-REACTIVE PROTEIN 0.33 mg/dL (<0.30); CALCIUM 9.9 mg/dL (8.5-10.1); CREATININE 0.9 mg/dL (0.55-1.02); EST CRCL DRUG DOSING (CG) 57.4 mL/min; POTASSIUM,K 4.6 mEq/L (3.5-5.1); PROTEIN TOTAL,TP 8.2 g/dl (6.4-8.2)
[2024-10-28] MEDS: HYDROmorphone 0.5 MG/0.5 ML Syringe IVPUSH ONE (14:06)
[2024-10-28] MEDS: Metoclopramide 10 MG/2 ML SDV IVPUSH ONE (14:07)
[2024-10-28 16:41] LABS: APPEARANCE,URINE CLEAR (Clear); BILIRUBIN,URINE NEGATIVE (Negative); COLOR,URINE YELLOW (Yellow); GLUCOSE,URINE 1+ (Negative); KETONES,URINE 2+ (Negative); LEUKOCYTE ESTERASE,URINE NEGATIVE (Negative); NITRITE,URINE NEGATIVE (Negative); OCCULT BLOOD,URINE NEGATIVE (Negative); PH,URINE 7.5 (5.0-8.0); PROTEIN,URINE 2+ (Negative)
[2024-10-28 16:42] LABS: BACTERIA,URINE FEW /hpf (FEW); MUCUS,URINE FEW /hpf (FEW); RBC,URINE 0-5 /hpf (0-5); SQUAMOUS EPITHELIAL CELLS,UR 0-5 /hpf (0-5); WBC,URINE 0-5 /hpf (0-5)
[2024-10-28 19:45] VITALS: BP 134/66; PULSE 81
== END 2024-10-28 17:00 | disposition home or self-care (01) ==
LOC: JD.ED 11:49
DX: K52.9 Noninfective gastroenteritis and colitis, unspecified (principal); E78.00 Pure hypercholesterolemia, unspecified; E11.9 Type 2 diabetes mellitus without complications; Z79.899 Other long term (current) drug therapy; Z79.84 Long term (current) use of oral hypoglycemic drugs; Z79.4 Long term (current) use of insulin
CPT/HCPCS: 36415; 74177; 80053; 81001; 83690; 85025; 86140; 96361; 96374; 96375; 99285; J2405; J2765; J7030; Q9967; 99284

== ENCOUNTER 2024-10-29 14:12 | Emergency (ER) | payer BC ==
[2024-10-29] MEDS: Sodium Chloride 0.9% 1,000 ML IV ONE (14:52)
[2024-10-29] MEDS: Ondansetron 4 MG/2 ML SDV IVPUSH ONE (14:52)
[2024-10-29] MEDS: Sodium Chloride 0.9% 10 ML Syringe FLUSH PRN (14:52)
[2024-10-29] MEDS: Dicyclomine 10 MG Cap PO ONE ×2 (15:32→20:52)
[2024-10-29 15:34] LABS: BASOPHILS ABSOLUTE AUTO 0.1 K/mm3 (0.0-0.2); BASOPHILS PERCENT AUTO 0.5 % (0.0-1.0); EOSINOPHILS PERCENT AUTO 0.2 % (0.0-6.0); HEMATOCRIT 40.2 % (37.0-47.0); HEMOGLOBIN 13.7 gm/dl (12.0-16.0); IMMATURE GRAN ABSOLUTE AUTO 0.04 K/mm3 (0.00-0.05); IMMATURE GRAN PERCENT AUTO 0.4 % (0.0-0.4); LYMPHOCYTES ABSOLUTE AUTO 1.7 K/mm3 (1.0-4.8); MEAN CORPUSCULAR HGB CONC 34.1 g/dl (32.0-36.0); MEAN CORPUSCULAR VOLUME 85.2 fl (83.0-99.0); MEAN PLATELET VOLUME 12.7 fl (9.4-12.3); MONOCYTES ABSOLUTE AUTO 0.5 K/mm3 (0.0-0.8); MONOCYTES PERCENT AUTO 4.7 % (0.0-8.0); NEUTROPHILS ABSOLUTE AUTO 8.9 K/mm3 (1.8-7.7); NEUTROPHILS PERCENT AUTO 79.2 % (41.0-71.0); PLATELET COUNT,PLT 232 K/mm3 (150-400); RED BLOOD CELL COUNT 4.72 M/mm3 (4.10-5.30); WHITE BLOOD CELL COUNT,WBC 11.16 K/mm3 (3.9-11.3)
[2024-10-29 15:58] LABS: HEMOGLOBIN A1C 8.2 %
[2024-10-29 15:59] LABS: ALANINE AMINOTRANSFERASE,ALT 23 U/L (14-59); ALBUMIN 3.7 g/dl (3.4-5.0); ALKALINE PHOSPHATASE 64 U/L (46-116); ANION GAP 15.6 (5-15); ASPARTATE AMNIOTRANSFERASE,AST 12 U/L (15-37); BILIRUBIN TOTAL 0.6 mg/dL (0.2-1.0); BLOOD UREA NITROGEN,BUN 12 mg/dL (7-18); BUN/CREATININE RATIO 13.3 (14-18); C-REACTIVE PROTEIN 0.25 mg/dL (<0.30); CALCIUM 9.5 mg/dL (8.5-10.1); CARBON DIOXIDE,CO2 24 mEq/L (21-32); CHLORIDE,CL 100 mEq/L (98-107); CREATININE 0.9 mg/dL (0.55-1.02); ESTIMATED GFR 73 mL/min (>60); GLUCOSE RANDOM 244 mg/dL (70-99); MAGNESIUM 1.6 mg/dL (1.8-2.4); POTASSIUM,K 3.6 mEq/L (3.5-5.1); PROTEIN TOTAL,TP 7.6 g/dl (6.4-8.2); SODIUM,NA 136 mEq/L (136-145)
[2024-10-29 16:06] LABS: LACTIC ACID 1.7 mmol/L (0.4-2.0)
[2024-10-29] MEDS ORDERED: Naloxone 0.4 MG/ML SDV IVPUSH PRN (16:31)
[2024-10-29 16:32] LABS: APPEARANCE,URINE CLEAR (Clear); BILIRUBIN,URINE NEGATIVE (Negative); COLOR,URINE YELLOW (Yellow); GLUCOSE,URINE TRACE (Negative); KETONES,URINE 3+ (Negative); LEUKOCYTE ESTERASE,URINE NEGATIVE (Negative); NITRITE,URINE NEGATIVE (Negative); OCCULT BLOOD,URINE NEGATIVE (Negative); PROTEIN,URINE TRACE (Negative); UROBILINOGEN,URINE 0.2 (0.2-1.0)
[2024-10-29] MEDS: HYDROmorphone 0.5 MG/0.5 ML Syringe IVPUSH ONE (16:35)
[2024-10-29 17:10] LABS: BACTERIA,URINE FEW /hpf (FEW); EPITHELIAL CELLS,URINE 0-5 /hpf (0-5); RBC,URINE 0-5 /hpf (0-5); WBC,URINE 0-5 /hpf (0-5)
[2024-10-29 17:11] LABS: MUCUS,URINE FEW /hpf (FEW)
[2024-10-29] MEDS: droPERidol 2.5 MG/ML SDV IV STA (18:21)
[2024-10-30 00:16] VITALS: BP 152/78; PULSE 72
== END 2024-10-29 22:35 | disposition home or self-care (01) ==
LOC: JD.ED 14:12
DX: R11.2 Nausea with vomiting, unspecified (principal); R10.9 Unspecified abdominal pain; E78.00 Pure hypercholesterolemia, unspecified; E11.9 Type 2 diabetes mellitus without complications; Z79.4 Long term (current) use of insulin; Z79.899 Other long term (current) drug therapy
CPT/HCPCS: 36415; 80053; 81001; 83036; 83605; 83735; 85025; 86140; 87040; 96361; 96374; 96375; 99284; A9270; J1790; J2405; J7030